=== PATIENT | female | born 1945 | race Caucasian/White ===

== ENCOUNTER 2018-08-06 14:09 | Inpatient (IN) | payer MEDICAID, OTHER ==
[~2018-08-06] VITALS: Ht 170.2 cm; Wt 140.8 kg
--- OUTSIDE RECORDS SUMMARY | 2018-08-06 14:16 | XMS REPORT ---
Author Author PAULINA COHEN Organization [facility] Address [address] [place] [address] Care Team Providers Care Guest Request Runner Name Role Phone PAULINA COHEN Unavailable PROBLEMS Type Condition ICD9-CM Code [id number] Code Onset Dates Condition Status SNOMED Code Problem Depressive disorder, not elsewhere classified F32.9 Active [id number] ALLERGIES No Information ENCOUNTERS Encounter Location Date Diagnosis [facility] [address] [facility] [id number] [address] Jul, Unspecified symptoms and signs involving cognitive functions and awareness R41.9 and Depressive disorder, not elsewhere classified F32.9 IMMUNIZATIONS No Known Immunizations SOCIAL HISTORY Never Assessed REASON FOR VISIT intake PLAN OF CARE VITAL SIGNS MEDICATIONS Medication Instructions Dosage Frequency Start Date End Date Duration Status Magnesium Oxide Active Ibuprofen Active Omeprazole Active Tylenol Active Calcium Carbonate Active Midodrine HCl Active Paroxetine HCl Active Potassium Active Ferrous Sulfate Active Phos-NaK Active Zocor Active RESULTS No Results PROCEDURES Procedure Date Ordered Result Body Site Psych diagnostic evaluation, new patient August 02, 2017 INSTRUCTIONS MEDICATIONS ADMINISTERED No Known Medications
--- OUTSIDE RECORDS SUMMARY | 2018-08-06 14:16 | XMS REPORT | Continuity of Care Document ---
Author Organization Unknown Address Unknown Allergies Active Description Code Type Severity Reaction Onset Reported/Identified Relationship to Patient Clinical Status Yes PENICILLINS UNKNOWN UNKNOWN Medications Medication Packaging Start Date Stop Date Route Dosage Sig ACETAMINOPHEN ORAL TABLET 325mg(Tylenol) MG 07/18/2018 08/17/2018 PRN EVERY 4 Hour POLYETHYLENE GLYCOL POWDER UD PWD (MIRALAX 17GM UNIT DOSE PAKS) gm 07/18/2018 08/17/2018 PRN Q3H LORAZEPAM TAB 1 MG (ATIVAN) MG 07/18/2018 07/25/2018 PRN Q6H MIDODRINE TAB 2.5 MG (PROAMATINE) MG 07/18/2018 08/17/2018 TID&0800,1400,2000 Valproic acid oral solution 250mg/5cc (Depakote) MG 07/18/2018 08/17/2018 TID&0800,1400,2000 SIMVASTATIN TAB 80 MG (ZOCOR) MG 07/18/2018 08/16/2018 QPM&2000 DIVALPROEX ER TAB 125 MG (DEPAKOTE ER) MG 07/18/2018 08/17/2018 BID&0800,2000 FERROUS SULFATE TAB 325 MG (FEOSOL) MG 07/18/2018 08/17/2018 BID&0800,2000 CALCIUM CARBONATE TAB 500 MG (TUMS) MG 07/18/2018 08/17/2018 BID&0800,2000 LACTULOSE SYRUP LIQ 20 GM/30CC (CHRONULAC SYRUP) GM 07/18/2018 08/17/2018 BID&0800,2000 MILK OF MAGNESIA LIQ ml 07/18/2018 08/17/2018 PRN BID TRAZODONE TAB 50 MG (DESYREL) MG 07/18/2018 08/16/2018 QHS&2100 POTASSIUM CHLORIDE TAB 20 MEQ (K-DUR) MEQ 07/19/2018 08/17/2018 QAM&0800 MAGNESIUM OXIDE TAB 400 MG (MAG-OX) MG 07/19/2018 08/17/2018 Daily&0900 PAROXETINE TAB 20 MG (PAXIL) MG 07/19/2018 08/17/2018 Daily&0900 VENLAFAXINE XR CAP 75 MG (EFFEXOR XR) MG 07/19/2018 08/17/2018 Daily&0900 SOLIFENACIN TAB 10 MG (VESICARE) MG 07/19/2018 08/17/2018 Daily&0900 PANTOPRAZOLE TAB 20 MG (PROTONIX) MG 07/19/2018 08/17/2018 Daily&0900 HALOPERIDOL TAB 5 MG (HALDOL) MG 07/19/2018 07/20/2018 Q6H&0600,1800,2359 FUROSEMIDE TAB 40 MG (LASIX) MG 07/22/2018 07/22/2018 ONCE&1349 ALBUTEROL SVN 2.5MG/3CC LIQ 2.5 MG (PROVENTIL MAROI 2.5MG/3CC) MG 07/22/2018 07/22/2018 ONCE&1350 ALBUTEROL SVN 2.5MG/3CC LIQ 2.5 MG (PROVENTIL MARIO 2.5MG/3CC) MG 07/22/2018 08/21/2018 BID&0800,2000 Problems Date Dx Coded Attending Type Code Diagnosis Diagnosed By 07/18/2018 NISREEN NIÑO 296.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 Results Test Result Range Urinalysis - 07/08/17 01:20 Icotest N/A Negative Urine Volume Urine Volume Sufficient (10mL) Urine Yeast No Yeast present Urine-Appearance slightly Cloudy Clear Urine-Bacteria 3+ Urine-Bilirubin Negative Negative Urine-Blood Negative Negative Urine-Color Yellow Colorless-Lt. Yellow Urine-Epithelial Cells 0-5/HPF Urine-Glucose Negative Negative Urine-Ketones Negative Negative Urine-Leukocytes 1+ Negative Urine-Nitrite Positive Negative Urine-Other Culture to follow Urine-pH 7.0 5-8.5 Urine-Protein Negative Negative Urine-RBC Negative Urine-Specific Jean 1.015 1.000-1.030 Urine-WBC 5-10/HPF Urobilinogen 0.2 0.2-1.0 Urine Culture - 07/08/17 01:20 MEDIA PLATED Setup at 14:37 on 07/08/2017 CULTURE SOURCE void Sensi - 07/08/17 01:20 FINAL CULTURE RESULTS Escherichia coli (Isolate 1) Ampicillin/Sulbactam >16/8 Ampicillin >16 Amoxicillin/K Clavulanate <=8/4 Ceftriaxone <=8 Ciprofloxacin >2 Nitrofurantoin <=32 Gentamicin <=4 Levofloxacin >4 Trimethoprim/ Sulfamethoxazole >2/38 Tetracycline >8 Amikacin <=16 Aztreonam <=8 Ceftazidime <=1 Ceftazidime/K Clavulanate <=0.25 Cephalothin >16 Cefotaxime <=2 Cefotaxime/K Clavulanate <=0.5 Cefoxitin <=8 Cefazolin <=8 Cefepime <=8 Cefuroxime 8 Ertapenem <=1 Imipenem <=4 Meropenem <=4 Piperacillin/Tazobactam <=16 Piperacillin >64 Tigecycline <=2 Tobramycin <=4 CULTURE, URINE - 05/07/18 08:54 CULTURE, URINE, ROUTINE SEE NOTE NRG CULTURE, URINE - 06/04/18 14:17 CULTURE, URINE, ROUTINE SEE NOTE NRG CULTURE, URINE - 06/13/18 14:53 CULTURE, URINE, ROUTINE SEE NOTE NRG Valproic Acid - 07/18/18 09:45 Valproic Acid 18.3 ug/mL 55.0-105.0 MRSA Screen - 07/18/18 09:45 FINAL CULTURE RESULTS MRSA Negative Nasal Culture Urine Culture - 07/18/18 12:29 PRELIM CULTURE RESULTS 50,000-100,000 Gram Positive Mixed Pamela [id number] Skin Contaminant MEDIA PLATED Setup at 13:02 on 07/18/2018 CULTURE SOURCE void Urinalysis - 07/18/18 12:29 Icotest N/A Negative Urine Volume Urine Volume Sufficient (10mL) Urine Yeast No Yeast present Urine-Appearance Cloudy Clear Urine-Bacteria Trace Urine-Bilirubin Negative Negative Urine-Blood Negative Negative Urine-Color Yellow Colorless-Lt. Yellow Urine-Epithelial Cells 0-5/HPF Urine-Glucose Negative Negative Urine-Ketones Negative Negative Urine-Leukocytes Negative Negative Urine-Nitrite Negative Negative Urine-Other Culture to follow Urine-pH 7.0 5-8.5 Urine-Protein Negative Negative Urine-RBC Negative Urine-Specific Jean 1.015 1.000-1.030 Urine-WBC Rare/HPF Urobilinogen 0.2 E.U./dL 0.2-1.0 Urine Culture - 07/18/18 12:29 PRELIM CULTURE RESULTS 50,000-100,000 Gram Positive Mixed Pamela [id number] Skin Contaminant FINAL CULTURE RESULTS >100,000 Gram Positive Mixed Pamela Probable Skin Contaminant No Further Workup done MEDIA PLATED Setup at 13:02 on 07/18/2018 CULTURE SOURCE void Lipid Panel - 07/19/18 05:47 C/HDL 3.1 3.7-6.7 Cholesterol 113 mg/dL 100-240 HDL 36 mg/dL 30-85 LDL-Calculated 50 mg/dL 0-100 Trig 137 mg/dL 35-160 VLDL 27 mg/dL 0-42 Valproic Acid - 07/21/18 05:20 Valproic Acid 62.9 ug/mL 55.0-105.0 Comprehensive Metabolic Panel - 07/23/18 05:39 Albumin 3.5 g/dL 3.6-5.1 ALP 108 U/L 35-130 ALT 17 U/L 6-45 Anion Gap 16 6-14 AST 17 U/L 2-40 BUN 19 mg/dL 5-25 Calcium 8.9 mg/dL 8.3-10.4 Chloride 98 mmol/L 95-114 CO2 30 mEq/L 22-33 Creat 0.82 mg/dL 0.50-1.50 eGFR 69 mL/min/1.73m2 >59 Globulin 2.8 g/dL 2.3-3.5 Glucose 83 mg/dL 70-110 Osmo 288 280-295 Potassium 4.6 mmol/L 3.5-5.3 Sodium 139 mmol/L 134-148 TBil 0.4 mg/dL 0.2-1.2 TP 6.3 g/dL 6.0-8.3 Encounters ACCT No. Visit Date/Time Discharge Status Pt. Type Provider Facility Loc./Unit Complaint [id number] 07/18/2018 09:56:00 07/23/2018 07:11:00 DIS Inpatient RENAY [facility] [id number] 07/08/2017 14:13:00 07/08/2017 23:59:00 DIS Outpatient Nathan Canela [id number] 07/18/2018 11:00:48 Document Registration [id number] 07/18/2018 11:16:00 Document Registration [id number] 08/05/2018 09:00:00 ACT Outpatient SUBHASH OCAMPO [facility] [id number] 06/13/2018 14:00:00 Document Registration [id number] 06/04/2018 14:00:00 Document Registration [id number] 05/07/2018 09:00:00 Document Registration
--- NOTE | 2018-08-06 14:28 | ED Respiratory ---
General Chief Complaint: Respiratory Problems Stated Complaint: BREATHING, SWOLLEN FEET Source: family Exam Limitations: no limitations History of Present Illness Date Seen by Provider: Aug 06, 2018 Time Seen by Provider: 14:25 Initial Comments To ER per private vehicle from [facility] and rehabilitation by family with reports of increasing weakness, wheezing, lower extremity redness and swelling worse usual. Patient has had some behavioral issues in the [place] [facility] and was recently sent to [facility]. Upon discharge from there family noted her to be progressively more weak to the point that she is unable to transfer without assistance or perform activities of daily living over the past 3 days. Prior to this she was able to do these things independently. While she was at [facility] she was started on Depakote. She does have a history of congestive heart failure, has been on Lasix for the past few days. Legs are more red and swollen than usual and has been on outpatient Keflex for cellulitis. She has also been wheezing and breathing more heavily than usual for the past 2 days. No reports of fevers per [place] [facility] staff Timing/Duration: constant Severity: moderate Associated Symptoms: cough, shortness of breath, wheezing Allergies and Home Medications Allergies Coded Allergies: Penicillins (Unverified Allergy, Mild, HIVES, 12/05/05) Tetanus Vaccines and Toxoid (Unverified Allergy, Mild, HIVES, 12/05/05) Home Medications Pantoprazole Sodium 20 Mg Tablet.dr, 20 MG PO DAILY, (Reported) Patient Home Medication List Home Medication List Reviewed: Yes Review of Systems Review of Systems Constitutional: see HPI; No fever; malaise, weakness EENTM: see HPI Respiratory: dyspnea on exertion Cardiovascular: no symptoms reported Genitourinary: no symptoms reported Musculoskeletal: no symptoms reported Skin: no symptoms reported Psychiatric/Neurological: No Symptoms Reported Hematologic/Lymphatic: No Symptoms Reported Immunological/Allergic: no symptoms reported Past Iestfjr-Mncqqb-Xrddra Hx Patient Social History Recent Foreign Travel: No Contact w/Someone Who Travel: No Physical Exam Vital Signs - First Documented 08/06/18 14:20 Temp 97.9 Pulse 93 Resp 29 B/P (MAP) 133/80 (97) Pulse Ox 92 O2 Delivery Room Air Capillary Refill : Height: '" Weight: lbs. oz. kg; BMI Method: General Appearance: WD/WN, mild distress (related to breathing status, she is dyspneic and wheezy audibly. Oxygen saturation 92% room air), obese Eyes: Bilateral Eye Normal Inspection, Bilateral Eye PERRL HEENT: PERRL/EOMI, normal ENT inspection Neck: non-tender, full range of motion Respiratory: no accessory muscle use, decreased breath sounds, wheezing Cardiovascular: regular rate, rhythm, no murmur Gastrointestinal: normal bowel sounds, non tender, soft Extremities: normal range of motion, non-tender, other (significant pitting edema bilateral lower extremity with erythema no open wounds) Neurologic/Psychiatric: alert Skin: normal color, warm/dry Focused Exam Lactate Level 08/06/18 14:36: Lactic Acid Level 1.01 Lactic Acid Level Laboratory Tests Test 08/06/18 14:36 Lactic Acid Level 1.01 MMOL/L (0.50-2.00) Progress/Results/Core Measures Suspected Sepsis SIRS Temperature: Pulse: Respiratory Rate: Laboratory Tests 08/06/18 14:36: White Blood Count 6.6 Blood Pressure / Mean: 08/06/18 14:36: Lactic Acid Level 1.01 Laboratory Tests 08/06/18 14:36: Creatinine 0.88, Platelet Count 180, Total Bilirubin 0.4 Results/Orders Lab Results Laboratory Tests Test 08/06/18 14:36 08/06/18 15:34 08/06/18 15:50 Range/Units White Blood Count 6.6 4.3-11.0 10^3/uL Red Blood Count 4.24 L 4.35-5.85 10^6/uL Hemoglobin 12.5 11.5-16.0 G/DL Hematocrit 39 35-52 % Mean Corpuscular Volume 93 80-99 FL Mean Corpuscular Hemoglobin 30 25-34 PG Mean Corpuscular Hemoglobin Concent 32 32-36 G/DL Red Cell Distribution Width 14.4 10.0-14.5 % Platelet Count 180 130-400 10^3/uL Mean Platelet Volume 10.3 7.4-10.4 FL Neutrophils (%) (Auto) 75 42-75 % Lymphocytes (%) (Auto) 9 L 12-44 % Monocytes (%) (Auto) 16 H 0-12 % Eosinophils (%) (Auto) 0 0-10 % Basophils (%) (Auto) 0 0-10 % Neutrophils # (Auto) 4.9 1.8-7.8 X 10^3 Lymphocytes # (Auto) 0.6 L 1.0-4.0 X 10^3 Monocytes # (Auto) 1.1 H 0.0-1.0 X 10^3 Eosinophils # (Auto) 0.0 0.0-0.3 10^3/uL Basophils # (Auto) 0.0 0.0-0.1 10^3/uL Sodium Level 137 135-145 MMOL/L Potassium Level 4.7 3.6-5.0 MMOL/L Chloride Level 100 98-107 MMOL/L Carbon Dioxide Level 25 21-32 MMOL/L Anion Gap 12 5-14 MMOL/L Blood Urea Nitrogen 16 7-18 MG/DL Creatinine 0.88 0.60-1.30 MG/DL Estimat Glomerular Filtration Rate > 60 BUN/Creatinine Ratio 18 Glucose Level 103 70-105 MG/DL Lactic Acid Level 1.01 0.50-2.00 MMOL/L Calcium Level 8.7 8.5-10.1 MG/DL Corrected Calcium 8.9 8.5-10.1 MG/DL Magnesium Level 2.3 1.8-2.4 MG/DL Total Bilirubin 0.4 0.1-1.0 MG/DL Aspartate Amino Transf (AST/SGOT) 19 5-34 U/L Alanine Aminotransferase (ALT/SGPT) 16 0-55 U/L Alkaline Phosphatase 91 40-136 U/L Troponin I < 0.028 <0.028 NG/ML B-Type Natriuretic Peptide 17.5 <100.0 PG/ML Total Protein 7.5 6.4-8.2 GM/DL Albumin 3.8 3.2-4.5 GM/DL Valproic Acid (Depakene) Level 88.7 50.0-100.0 UG/ML Urine Color YELLOW Urine Clarity CLEAR Urine pH 5 5-9 Urine Specific [place] 1.015 L 1.016-1.022 Urine Protein NEGATIVE NEGATIVE Urine Glucose (UA) NEGATIVE NEGATIVE Urine Ketones NEGATIVE NEGATIVE Urine Nitrite NEGATIVE NEGATIVE Urine Bilirubin NEGATIVE NEGATIVE Urine Urobilinogen NORMAL NORMAL MG/DL Urine Leukocyte Esterase NEGATIVE NEGATIVE Urine RBC (Auto) NEGATIVE NEGATIVE Urine RBC NONE /HPF Urine WBC NONE /HPF Urine Squamous Epithelial Cells RARE /HPF Urine Crystals NONE /LPF Urine Bacteria NEGATIVE /HPF Urine Casts PRESENT /LPF Urine Hyaline Casts RARE /LPF Urine Mucus SMALL H /LPF Urine Culture Indicated NO Blood Gas Puncture Site RT BRACHIAL Blood Gas Patient Temperature 97.8 Arterial Blood pH 7.41 7.37-7.43 Arterial Blood Partial Pressure CO2 46 H 35-45 MMHG Arterial Blood Partial Pressure O2 60 L 79-93 MMHG Arterial Blood HCO3 29 H 23-27 MMOL/L Arterial Blood Total CO2 30.3 21.0-31.0 MMOL/L Arterial Blood Oxygen Saturation 93 L 94-100 % Arterial Blood Base Excess 4.3 H -2.5-2.5 MMOL/L Hilton Test YES Blood Gas Ventilator Setting NO Blood Gas Inspired Oxygen ROOM AIR My Orders Orders - FLACO ROCHA HYPNOTHERAPIST Cbc With Automated Diff (08/06/18 14:22) Comprehensive Metabolic Panel (08/06/18 14:22) Ua Culture If Indicated (08/06/18 14:22) BNP (08/06/18 14:22) Chest 1 View, Ap/Pa Only (08/06/18 14:22) Troponin I (08/06/18 14:22) Ekg Tracing (08/06/18 14:22) Magnesium (08/06/18 14:22) Valproic Acid (08/06/18 14:22) Ed Iv/Invasive Line Start (08/06/18 14:22) Blood Culture (08/06/18 14:22) Lactic Acid Analyzer (08/06/18 14:22) Albuterol/Ipra Inhalation Soln (Duoneb I (08/06/18 14:30) Svn Small Volume Nebulizer (08/06/18 14:28) Arterial Blood Gas (08/06/18 15:50) Arterial Blood Draw (08/06/18 ) Ct Head Wo (08/06/18 16:24) Iohexol Injection (Omnipaque 350 Mg/Ml 1 (08/06/18 17:30) Received Contrast (Hold Metformin- Contr (08/06/18 17:30) Ns (Ivpb) (Sodium Chloride 0.9% Ivpb Bag (08/06/18 17:30) Us Venous Lower Ext Amrit (08/06/18 17:51) Medications Given in ED Current Medications Medications Dose Ordered Sig/Omayra Route Start Time Stop Time Status Last Admin Dose Admin Albuterol/ Ipratropium 3 ml ONCE ONCE INH 08/06/18 14:30 08/06/18 14:31 DC 08/06/18 14:33 3 ML Vital Signs/I&O 08/06/18 08/06/18 14:20 14:33 Temp 97.9 Pulse 93 Resp 29 B/P (MAP) 133/80 (97) Pulse Ox 92 93 O2 Delivery Room Air Room Air Capillary Refill : Diagnostic Imaging Diagonstic Imaging: Xray Plain Films/CT/US/NM/MRI: chest Comments NAME: ANATOLIY SILVERMAN MED REC#: [id number] PT STATUS: REG ER : 1945 PHYSICIAN: FLACO ROCHA APRN ADMIT DATE: 08/06/18/ER Draft Date of Exam:08/06/18 CHEST 1 VIEW, AP/PA ONLY INDICATION: Increasing shortness of air and weakness. TIME OF EXAM: 02:44 p.m. COMPARISON: No prior studies are available for comparison. FINDINGS: The heart is enlarged. Density in the right cardiophrenic angle is noted and could represent infiltrate versus cardiophrenic fat. Remainder of the lung field is clear. Vascularity is normal. No significant effusion or pneumothorax is seen. IMPRESSION: Cardiomegaly and right cardiophrenic angle density, as described above. The study is otherwise unremarkable. Dictated on workstation # [id number] Dict: 08/06/18 1455 Trans: 08/06/18 1459 [id number] Interpreted by: DARLENE THAKKAR MD Electronically signed by: Departure Communication (Admissions) Time/Spoke to Admitting Phy: 17:51 1750-patient taken to the CT scan department but Called to report that she will not lay still, states that she wants up and refuses to proceed with the CT angiogram. 1821-I will order ultrasound venous lower is given the erythema and to help reduce the likelihood of coronary emboli if these are negative. In the meantime we will treat this question right lower lobe pneumonia with Zithromax and Ro cephin. Family would be most comfortable with admitting observation to hold the Depakote and ensure that her neurologic status improves as it is believed based on absence of other findings that the Depakote contributing to this and ability to care for herself over the past few days. This is a fairly soft abdomen, her respiratory effort is a bit increased however it may be simply from her obesity. Respiratory rate about 24 and 92% on room air. Impression Primary Impression: General weakness Additional Impression: Right lower lobe pneumonia Qualified Codes: J18.1 - Lobar pneumonia, unspecified organism Disposition: ADMITTED INPATIENT Condition: Stable Admissions Decision to Admit Reason: Admit from ER (General) Decision to Admit/Date: Aug 06, 2018 Time/Decision to Admit Time: 15:37 Departure-Patient Inst. Referrals: SIMONE ROMAN MD (PCP) Primary Care Physician FLACO ROCHA APRN Aug 06, 2018 14:28
[2018-08-06] MEDS ORDERED: RT-ALBUTEROL/IPRATROPIUM 3 ML (DUONEB) VIAL INH ONE (14:30)
[2018-08-06 14:45] LABS: BASOPHILS % (AUTO) 0 % (0-10); EOSINOPHILS % (AUTO) 0 % (0-10); HEMATOCRIT 39 % (35-52); HEMOGLOBIN 12.5 G/DL (11.5-16.0); LYMPHOCYTES # (AUTO) 0.6 X 10^3 (1.0-4.0); LYMPHOCYTES % (AUTO) 9 % (12-44); MEAN CORPUSCULAR HEMOGLOBIN 30 PG (25-34); MEAN CORPUSCULAR HGB CONC 32 G/DL (32-36); MEAN CORPUSCULAR VOLUME 93 FL (80-99); MEAN PLATELET VOLUME 10.3 FL (7.4-10.4); MONOCYTES # (AUTO) 1.1 X 10^3 (0.0-1.0); MONOCYTES % (AUTO) 16 % (0-12); NEUTROPHILS # (AUTO) 4.9 X 10^3 (1.8-7.8); NEUTROPHILS % (AUTO) 75 % (42-75); PLATELET COUNT 180 10^3/uL (130-400); RED CELL DISTRIBUTION WIDTH 14.4 % (10.0-14.5); WHITE BLOOD COUNT 6.6 10^3/uL (4.3-11.0)
--- NOTE | 2018-08-06 15:00 | Diagnostic Imaging Report ---
INDICATION: Increasing shortness of air and weakness. TIME OF EXAM: 02:44 p.m. COMPARISON: No prior studies are available for comparison. FINDINGS: The heart is enlarged. Density in the right cardiophrenic angle is noted and could represent infiltrate versus cardiophrenic fat. Remainder of the lung field is clear. Vascularity is normal. No significant effusion or pneumothorax is seen. IMPRESSION: Cardiomegaly and right cardiophrenic angle density, as described above. The study is otherwise unremarkable. Dictated by: Dictated on workstation # [id number]
[2018-08-06 15:07] LABS: ALANINE AMINOTRANSFERASE 16 U/L (0-55); ALBUMIN 3.8 GM/DL (3.2-4.5); ALKALINE PHOSPHATASE 91 U/L (40-136); BILIRUBIN,TOTAL 0.4 MG/DL (0.1-1.0); BUN/CREATININE RATIO 18; CALCIUM 8.7 MG/DL (8.5-10.1); CARBON DIOXIDE 25 MMOL/L (21-32); CHLORIDE 100 MMOL/L (98-107); CREATININE SERUM 0.88 MG/DL (0.60-1.30); GFR ESTIMATED > 60; GLUCOSE 103 MG/DL (70-105); MAGNESIUM 2.3 MG/DL (1.8-2.4); POTASSIUM 4.7 MMOL/L (3.6-5.0); SODIUM 137 MMOL/L (135-145); TOTAL PROTEIN 7.5 GM/DL (6.4-8.2)
[2018-08-06 15:14] LABS: VALPROIC ACID 88.7 UG/ML (50.0-100.0)
[2018-08-06 15:40] LABS: BILIRUBIN,URINE NEGATIVE (NEGATIVE); CLARITY,URINE CLEAR; COLOR,URINE YELLOW; GLUCOSE, URINE (UA) NEGATIVE (NEGATIVE); KETONES,URINE NEGATIVE (NEGATIVE); LEUKOCYTE ESTERASE ,URINE NEGATIVE (NEGATIVE); NITRITE,URINE NEGATIVE (NEGATIVE); PH,URINE 5 (5-9); PROTEIN,URINE NEGATIVE (NEGATIVE); UROBILINOGEN,URINE NORMAL (NORMAL)
[2018-08-06 15:48] LABS: BACTERIA,URINE NEGATIVE /HPF; HYALINE CASTS, URINE RARE /LPF; SQUAMOUS EPITHELIAL CELL,UR RARE /HPF
[2018-08-06 15:57] LABS: ABG BASE EXCESS 4.3 MMOL/L (-2.5-2.5); ABG OXYGEN SATURATION 93 % (94-100); ABG PCO2 46 MMHG (35-45); ABG PH 7.41 (7.37-7.43); ABG PO2 60 MMHG (79-93); ABG TCO2 30.3 MMOL/L (21.0-31.0)
[2018-08-06 16:05] LABS: ALLENS TEST YES; INSPIRED O2 ROOM AIR; PATIENT TEMP 97.8; VENTILATOR NO
--- NOTE | 2018-08-06 16:18 | NUR ---
readjusted pt in bed, put pt in gown. pt is more awake et alert than previously
[2018-08-06] MEDS ORDERED: ASCO1CAP3 PO (17:16)
[2018-08-06] MEDS ORDERED: CNC1KV IM (17:19)
[2018-08-06] MEDS ORDERED: FERR325T18 PO (17:20)
[2018-08-06] MEDS ORDERED: CEPH-507 PO (17:21)
[2018-08-06] MEDS ORDERED: FURO-125 PO (17:22)
[2018-08-06] MEDS ORDERED: LACT20SO2 PO (17:22)
[2018-08-06] MEDS ORDERED: MAGN400T7 PO (17:24)
[2018-08-06] MEDS ORDERED: HOLD METFORMIN - RECEIVED CONTRAST 20 ML VIAL IV SCH (17:30)
[2018-08-06] MEDS ORDERED: NS 100 ML (IVPB) BAG IV ONE (17:30)
[2018-08-06] MEDS ORDERED: IOHEXOL 350 MG/ML 150 ML (OMNIPAQUE 350) VIAL IV ONE (17:30)
[2018-08-06] MEDS ORDERED: MIDO10TA PO (17:32)
[2018-08-06] MEDS ORDERED: OMEP20TA7 PO (17:33)
[2018-08-06] MEDS ORDERED: POTA20TA15 PO (17:34)
[2018-08-06] MEDS ORDERED: PANT20TA2 PO (17:35)
[2018-08-06] MEDS ORDERED: SIMV80TA21 PO (17:36)
[2018-08-06] MEDS ORDERED: TRAZ-222 PO (17:37)
[2018-08-06] MEDS ORDERED: VALP250S3 PO (17:37)
[2018-08-06] MEDS ORDERED: SOLI10TA2 PO (17:38)
--- NOTE | 2018-08-06 17:59 | NUR ---
pt refused CT because she was scared. Provider notified
--- NOTE | 2018-08-06 18:05 | Diagnostic Imaging Report ---
PROCEDURE: CT head without contrast. TECHNIQUE: Multiple contiguous axial images were obtained through the brain without the use of intravenous contrast. Auto Exposure Controls were utilized during the CT exam to meet ALARA standards for radiation dose reduction. INDICATION: Increasing weakness and shortness of air. COMPARISON: No prior studies are available for comparison. FINDINGS: Study is compromised due to patient's motion. Visualized ventricles and sulci appear to be within normal limits. No sulcal effacement, midline shift or hemorrhage is detected. Cisterns are patent. Visualized paranasal sinuses are clear. IMPRESSION: Limited by motion artifact. No acute abnormality is detected. Dictated by: Dictated on workstation # [id number]
--- NOTE | 2018-08-06 18:15 | NUR ---
pt is restless et saying her lower back et legs hurt. Provider notified
[2018-08-06] MEDS ORDERED: fentaNYL INJECTION 100 MCG/2 ML AMP IVP PRN (18:30)
[2018-08-06] MEDS ORDERED: KETOROLAC 30 MG/ML VIAL IVP ONE (18:30)
--- OUTSIDE RECORDS SUMMARY | 2018-08-06 18:31 | XMS REPORT | Continuity of Care Document ---
[...] 2.5 MG (PROVENTIL MARIO 2.5MG/3CC) MG 07/22/2018 07/22/2018 ONCE&1350 ALBUTEROL SVN [...] 5-8.5 Urine-Protein Negative Negative Urine-RBC Negative Urine-Specific [place] 1.015 1.000-1.030 Urine-WBC 5-10/HPF Urobilinogen 0.2 0.2-1.0 [...] CULTURE RESULTS 50,000-100,000 Gram Positive Mixed Pamela [id number] Skin Contaminant MEDIA PLATED Setup at 13:02 [...] 5-8.5 Urine-Protein Negative Negative Urine-RBC Negative Urine-Specific [place] 1.015 1.000-1.030 Urine-WBC Rare/HPF Urobilinogen 0.2 E.U./dL 0.2-1.0 Urine Culture - 07/18/18 12:29 PRELIM CULTURE RESULTS 50,000-100,000 Gram Positive Mixed Pamela [id number] Skin Contaminant FINAL CULTURE RESULTS >100,000 Gram [...] Status Pt. Type Provider Facility Loc./Unit Complaint [id number] 07/18/2018 09:56:00 07/23/2018 07:11:00 DIS Inpatient RENAY [facility] [id number] 07/08/2017 14:13:00 07/08/2017 23:59:00 DIS Outpatient Nathan Canela [id number] 07/18/2018 11:00:48 Document Registration [id number] 07/18/2018 11:16:00 Document Registration [id number] 08/05/2018 09:00:00 ACT Outpatient SUBHASH OCAMPO [facility] [id number] 06/13/2018 14:00:00 Document Registration [id number] 06/04/2018 14:00:00 Document Registration [id number] 05/07/2018 09:00:00 Document Registration
--- NOTE | 2018-08-06 18:40 | NUR ---
REPORT RECEIVED FROM DEMOND JETER IN ED
--- NOTE | 2018-08-06 18:42 | NUR ---
pt report given to Lizeth LAGOS
--- NOTE | 2018-08-06 18:43 | NUR ---
report given to [facility]
--- NOTE | 2018-08-06 18:44 | Diagnostic Imaging Report ---
PROCEDURE: US Venous Lower Ext Amrit. TECHNIQUE: Multiple real-time grayscale images were obtained over the lower extremities in various projections, bilaterally. Additional duplex Doppler and color Doppler images were also obtained. INDICATION: Bilateral lower extremity swelling. FINDINGS: Study is somewhat compromised due to patient body habitus. The common femoral as well as the upper and middle superficial femoral veins are patent. The lower femoral veins as well as the popliteal veins were not well visualized. No fluid collections are seen. IMPRESSION: Limited study due to body habitus. No definite right or left lower extremity DVT is identified. Dictated by: Dictated on workstation # [id number]
[2018-08-06 18:50] VITALS: BP 100/60
--- NOTE | 2018-08-06 18:52 | NUR ---
PT ARRIVED TO FLOOR VIA STRETCHER WITH DAUGHTERS AND PCT AT SIDE. A/O X3. REDNESS/ EDEMA NOTED TO BILAT LOWER EXTREM, BUTTOCKS RED/BLANCHABLE WITH BM PRESENT. BUTTOCKS CLEANSED AND PROTECTIVE CREAM APPLIED. PT AND DAUGHTER ORIENTED TO ROOM. CALL LIGHT WITHIN REACH. BED ALARM ON.
[2018-08-06 19:05] VITALS: BP 100/67
[2018-08-06] MEDS ORDERED: AZITHROMYCIN 250 MG TAB (ZITHROMAX) PO NR (19:30)
[2018-08-06] MEDS ORDERED: CATHETER FLUSH 10 ML SYR IV PRN (19:45)
[2018-08-06] MEDS: RT-ALBUTEROL/IPRATROPIUM 3 ML (DUONEB) VIAL INH SCH (19:53)
[2018-08-06] MEDS: guaiFENesin (MUCINEX) 600 MG TAB PO SCH (20:28)
[2018-08-06] MEDS: ENOXAPARIN 40 MG/0.4 ML (LOVENOX) SYR SC SCH (20:29)
[2018-08-06] MEDS: cefTRIAXone 1,000 MG/SWFI 10 ML IV PUSH IV SCH ×2 (20:38)
[2018-08-06 20:59] VITALS: BP 108/75
[2018-08-06] MEDS: CATHETER FLUSH 10 ML SYR IV SCH (22:00)
[2018-08-06 23:35] VITALS: BP 148/95
[2018-08-07] MEDS: RT-ALBUTEROL/IPRATROPIUM 3 ML (DUONEB) VIAL INH SCH ×8 (02:54→22:50)
[2018-08-07 03:00] VITALS: BP 117/58
--- NOTE | 2018-08-07 03:00 | NUR ---
contacted dr Lauren regarding patient agitation. Give Ativan 1mg ivp x1 now. TORBV
[2018-08-07] MEDS ORDERED: LORazepam INJ 2 MG/ML (ATIVAN) VIAL ONE (03:03)
[2018-08-07] MEDS ORDERED: LORazepam INJ 2 MG/ML (ATIVAN) VIAL IVP ONE (03:15)
[2018-08-07] MEDS: CATHETER FLUSH 10 ML SYR IV SCH ×3 (06:37→21:28)
--- NOTE | 2018-08-07 07:49 | NUR ---
PATIENT'S DAUGHTER CALLED. SET UP A PASSWORD. SHE IS CONCERNED ABOUT THE DEPAKOTE HER MOTHER HAS BEEN TAKING FOR A FEW WEEKS. SHE STATED THAT FLACO FROM ED WAS GOING TO REDUCE THE DOSE. SHE WANTS TO BE SURE THE DOCTOR IS AWARE ABOUT HER CONCERNS REGARDING THE DEPAKOTE. SHE STATED THAT ALL HER MOTHER'S PROBLEMS STARTED WHEN SHE STARTED TO TAKE IT.
[2018-08-07 08:23] VITALS: BP 114/77
[2018-08-07] MEDS: ENOXAPARIN 40 MG/0.4 ML (LOVENOX) SYR SC SCH ×2 (08:47→21:27)
[2018-08-07] MEDS: AZITHROMYCIN 250 MG TAB (ZITHROMAX) PO SCH (08:47)
[2018-08-07] MEDS: guaiFENesin (MUCINEX) 600 MG TAB PO SCH ×2 (08:47→21:27)
--- NOTE | 2018-08-07 10:28 | History & Physicial (CHS) ---
HPI History of Present Illness: 73 yo female states she came to ER because she was in pain. She is unable to give much more history, mumbling and having increased work of breathing. Source: patient Exam Limitations: clinical condition Date seen by provider: Aug 07, 2018 Time Seen by Provider: 10:28 Attending Physician Mindi Lauren MD PCP Jonathan Kingsley MD Consult Date of Admission Aug 06, 2018 at 18:20 Home Medications Home Medications Reviewed patient Home Medication Reconciliation performed by pharmacy medication reconciliations fill technician and/or nursing. Patients Allergies have been reviewed. Allergies Coded Allergies: Penicillins (Unverified Allergy, Mild, HIVES, 12/05/05) Tetanus Vaccines and Toxoid (Unverified Allergy, Mild, HIVES, 12/05/05) DSR-Kispet-Ljkyqr Hx Patient Social History Alcohol Use: Denies Use Recreational Drug Use: No Recent Foreign Travel: No Contact w/other who traveled: No Recent Hopitalizations: Yes Recent Infectious Disease Expo: No Past Medical History PMHx: Unable to obtain due to patient condition Review of Systems (CHC) Constitutional: other (unable to obtain due to patient condition) Reviewed Test Results Reviewed Test Results Lab Laboratory Tests Test 08/06/18 14:36 08/06/18 15:34 08/06/18 15:50 08/07/18 11:20 Range/Units White Blood Count 6.6 5.4 4.3-11.0 10^3/uL Red Blood Count 4.24 L 3.94 L 4.35-5.85 10^6/uL Hemoglobin 12.5 12.0 11.5-16.0 G/DL Hematocrit 39 38 35-52 % Mean Corpuscular Volume 93 95 80-99 FL Mean Corpuscular Hemoglobin 30 30 25-34 PG Mean Corpuscular Hemoglobin Concent 32 32 32-36 G/DL Red Cell Distribution Width 14.4 14.7 H 10.0-14.5 % Platelet Count 180 153 130-400 10^3/uL Mean Platelet Volume 10.3 10.0 7.4-10.4 FL Neutrophils (%) (Auto) 75 42-75 % Lymphocytes (%) (Auto) 9 L 12-44 % Monocytes (%) (Auto) 16 H 0-12 % Eosinophils (%) (Auto) 0 0-10 % Basophils (%) (Auto) 0 0-10 % Neutrophils # (Auto) 4.9 1.8-7.8 X 10^3 Lymphocytes # (Auto) 0.6 L 1.0-4.0 X 10^3 Monocytes # (Auto) 1.1 H 0.0-1.0 X 10^3 Eosinophils # (Auto) 0.0 0.0-0.3 10^3/uL Basophils # (Auto) 0.0 0.0-0.1 10^3/uL Sodium Level 137 137 135-145 MMOL/L Potassium Level 4.7 4.7 3.6-5.0 MMOL/L Chloride Level 100 101 98-107 MMOL/L Carbon Dioxide Level 25 28 21-32 MMOL/L Anion Gap 12 8 5-14 MMOL/L Blood Urea Nitrogen 16 14 7-18 MG/DL Creatinine 0.88 0.81 0.60-1.30 MG/DL Estimat Glomerular Filtration Rate > 60 > 60 BUN/Creatinine Ratio 18 17 Glucose Level 103 106 H 70-105 MG/DL Lactic Acid Level 1.01 0.50-2.00 MMOL/L Calcium Level 8.7 8.2 L 8.5-10.1 MG/DL Corrected Calcium 8.9 8.8 8.5-10.1 MG/DL Magnesium Level 2.3 1.8-2.4 MG/DL Total Bilirubin 0.4 0.4 0.1-1.0 MG/DL Aspartate Amino Transf (AST/SGOT) 19 17 5-34 U/L Alanine Aminotransferase (ALT/SGPT) 16 13 0-55 U/L Alkaline Phosphatase 91 89 40-136 U/L Troponin I < 0.028 <0.028 NG/ML B-Type Natriuretic Peptide 17.5 <100.0 PG/ML Total Protein 7.5 6.4 6.4-8.2 GM/DL Albumin 3.8 3.3 3.2-4.5 GM/DL Valproic Acid (Depakene) Level 88.7 50.0-100.0 UG/ML Urine Color YELLOW Urine Clarity CLEAR Urine pH 5 5-9 Urine Specific [place] 1.015 L 1.016-1.022 Urine Protein NEGATIVE NEGATIVE Urine Glucose (UA) NEGATIVE NEGATIVE Urine Ketones NEGATIVE NEGATIVE Urine Nitrite NEGATIVE NEGATIVE Urine Bilirubin NEGATIVE NEGATIVE Urine Urobilinogen NORMAL NORMAL MG/DL Urine Leukocyte Esterase NEGATIVE NEGATIVE Urine RBC (Auto) NEGATIVE NEGATIVE Urine RBC NONE /HPF Urine WBC NONE /HPF Urine Squamous Epithelial Cells RARE /HPF Urine Crystals NONE /LPF Urine Bacteria NEGATIVE /HPF Urine Casts PRESENT /LPF Urine Hyaline Casts RARE /LPF Urine Mucus SMALL H /LPF Urine Culture Indicated NO Blood Gas Puncture Site RT BRACHIAL Blood Gas Patient Temperature 97.8 Arterial Blood pH 7.41 7.37-7.43 Arterial Blood Partial Pressure CO2 46 H 35-45 MMHG Arterial Blood Partial Pressure O2 60 L 79-93 MMHG Arterial Blood HCO3 29 H 23-27 MMOL/L Arterial Blood Total CO2 30.3 21.0-31.0 MMOL/L Arterial Blood Oxygen Saturation 93 L 94-100 % Arterial Blood Base Excess 4.3 H -2.5-2.5 MMOL/L Hilton Test YES Blood Gas Ventilator Setting NO Blood Gas Inspired Oxygen ROOM AIR Test 08/07/18 12:10 Range/Units Blood Gas Puncture Site VENOUS L FOREARM Blood Gas Patient Temperature 97.6 Arterial Blood pH 7.37 7.37-7.43 Arterial Blood Partial Pressure CO2 52 H 35-45 MMHG Arterial Blood Partial Pressure O2 41 L 79-93 MMHG Arterial Blood HCO3 30 H 23-27 MMOL/L Arterial Blood Total CO2 31.6 H 21.0-31.0 MMOL/L Arterial Blood Oxygen Saturation 78 L 94-100 % Arterial Blood Base Excess 4.9 H -2.5-2.5 MMOL/L Hilton Test N/A Blood Gas Ventilator Setting NO Blood Gas Inspired Oxygen UNK Radiology Head CT 08/06 without acute abnormality Bilateral LE venous dopplers 08/06 with no DVT CXR 08/06 with right cardiophrenic angle density Physical Exam-(CHC) Physical Exam Vital Signs VS - Last 72 Hours, by Label 08/06/18 08/06/18 08/06/18 08/06/18 14:20 14:33 18:08 18:50 Temp 97.9 98.1 98.5 Pulse 93 84 93 Resp 29 18 16 B/P (MAP) 133/80 (97) 152/78 (102) 100/60 (73) Pulse Ox 92 93 100 92 O2 Delivery Room Air Room Air Room Air Nasal Cannula O2 Flow Rate 2.00 08/06/18 08/06/18 08/06/18 08/06/18 19:05 20:00 20:06 20:24 Temp 98.5 Pulse 93 95 Resp 16 B/P (MAP) 100/67 Pulse Ox 92 95 92 O2 Delivery Room Air Nasal Cannula Nasal Cannula O2 Flow Rate 2.00 2.00 08/06/18 08/06/18 08/06/18 08/07/18 20:59 22:00 23:35 01:00 Temp 97.4 98.4 Pulse 84 98 98 Resp 18 18 B/P (MAP) 108/75 (86) 148/95 (112) Pulse Ox 95 95 92 O2 Delivery Nasal Cannula Nasal Cannula Nasal Cannula O2 Flow Rate 2.00 2.00 2.00 08/07/18 08/07/18 08/07/18 08/07/18 02:57 03:00 07:05 07:05 Temp 98.9 Pulse 110 102 Resp 22 B/P (MAP) 117/58 (77) Pulse Ox 92 94 87 O2 Delivery Nasal Cannula Nasal Cannula Nasal Cannula O2 Flow Rate 2.00 2.00 2.00 2.00 08/07/18 08/07/18 08/07/18 08/07/18 08:00 08:23 12:00 12:10 Temp 96.9 97.6 Pulse 108 101 100 Resp 26 24 27 B/P (MAP) 114/77 (89) 131/61 (84) Pulse Ox 95 95 97 92 O2 Delivery Nasal Cannula Nasal Cannula NIV Bilevel O2 Flow Rate 3.00 3.00 21.00 08/07/18 08/07/18 12:20 12:36 Pulse 102 99 Resp 24 Pulse Ox 91 O2 Flow Rate 21.00 Capillary Refill : Less Than 3 Seconds General Appearance: moderate distress, obese Eyes: Bilateral Eye PERRL Respiratory: accessory muscle use, wheezing Cardiovascular: regular rate, rhythm, no murmur Gastrointestinal: normal bowel sounds, non tender, soft Extremities: pedal edema, other (mild calf redness bilaterally) Neurologic/Psychiatric: alert, other (unable to cooperate well/follow instructions for cranial nerve exams, 4/5 strength bilaterally in arms and legs, speech is difficult to understand and frequently off subject of question that was asked) Skin: warm/dry Assessment/Plan Assessment/Plan Admission Status: Observation (1) Confusion Status: Acute Assessment & Plan: Unknown baseline, no family present, but was reportedly in senior behavioral health recently and started on depakote. Holding depakote, pt remains difficult to understand and somewhat lethargic, will check ABG given increased work of breathing. Head CT okay on admit. (2) General weakness Status: Acute Assessment & Plan: Unclear etiology, possibly infection related, when more alert will have PT/OT eval. (3) Right lower lobe pneumonia Status: Acute Assessment & Plan: Started on rocephin and azithromycin in ER, will continue. Qualifiers: Qualified Codes: J18.1 - Lobar pneumonia, unspecified organism (4) Hypoxia Status: Acute Assessment & Plan: She denies using oxygen usually, has markedly increased work of breathing and is not leaving supplemental oxygen in place well. Repeat ABG and consult Dr. Macias. (5) UTI (urinary tract infection) Status: Acute Assessment & Plan: Previous to admission was being treated with Keflex, will be covered with ceftriaxone for pneumonia. Qualifiers: Qualified Codes: N39.0 - Urinary tract infection, site not specified (6) DVT prophylaxis Status: Acute Assessment & Plan: Enoxaparin Clinical Quality Measures DVT/VTE Risk/Contraindication: Risk Factor Score Per Nursin RFS Level Per Nursing on Admit: 4+=Very High MINDI LAUREN MD Aug 07, 2018 10:28
--- NOTE | 2018-08-07 10:47 | NUR ---
CALLED R.T REGARDING ABG ORDER
[2018-08-07] MEDS ORDERED: ACET325T49 PO (11:04)
[2018-08-07] MEDS ORDERED: POLY15DR14 OU (11:04)
[2018-08-07] MEDS ORDERED: CALC-938 PO (11:04)
[2018-08-07 11:31] LABS: RED CELL DISTRIBUTION WIDTH 14.7 % (10.0-14.5); WHITE BLOOD COUNT 5.4 10^3/uL (4.3-11.0)
--- NOTE | 2018-08-07 11:43 | NUR ---
Goran.Jory UNABLE TO OBTAIN ABG. Paco NOTIFIED DR BELTRAN
[2018-08-07] MEDS ORDERED: CRAN450C PO (11:44)
[2018-08-07 11:53] LABS: ALANINE AMINOTRANSFERASE 13 U/L (0-55); ALBUMIN 3.3 GM/DL (3.2-4.5); ALKALINE PHOSPHATASE 89 U/L (40-136); BILIRUBIN,TOTAL 0.4 MG/DL (0.1-1.0); BUN/CREATININE RATIO 17; CALCIUM 8.2 MG/DL (8.5-10.1); CARBON DIOXIDE 28 MMOL/L (21-32); CHLORIDE 101 MMOL/L (98-107); CREATININE SERUM 0.81 MG/DL (0.60-1.30); GFR ESTIMATED > 60; GLUCOSE 106 MG/DL (70-105); POTASSIUM 4.7 MMOL/L (3.6-5.0); SODIUM 137 MMOL/L (135-145); TOTAL PROTEIN 6.4 GM/DL (6.4-8.2)
[2018-08-07 12:00] VITALS: BP 131/61
[2018-08-07] MEDS ORDERED: methylPREDNISolone 125 MG (Solu-MEDROL) VIAL IV ONE (12:00)
--- NOTE | 2018-08-07 12:00 | Pulmonary Consultation ---
History of Present Illness History of Present Illness Date of Consultation 08/07/18 12:00 Date of Admission Allergies and Home Medications Allergies Coded Allergies: Penicillins (Unverified Allergy, Mild, HIVES, 12/05/05) Tetanus Vaccines and Toxoid (Unverified Allergy, Mild, HIVES, 12/05/05) Home Medications Acetaminophen 325 Mg Tablet, 325 MG PO Q4H PRN for PAIN-MILD, (Reported) Calcium Carbonate 300 Mg Tab.chew, 750 MG PO BID PRN for HEARTBURN, (Reported) Cephalexin 500 Mg Capsule, 500 MG PO TID, (Reported) Cranberry Fruit Concentrate 450 Mg Capsule, 450 MG PO BID, (Reported) Cyanocobalamin 1,000 Mcg/Ml Inj, 1,000 MCG IM monthly on the , (Reported) Ferrous Sulfate 325 Mg Tablet, 325 MG PO BID, (Reported) Lactulose 20 Gm/30 Ml Solution, 30 ML PO BID PRN for CONSTIPATION-3RD LINE, (Reported) Magnesium Oxide 400 Mg Tablet, 400 MG PO DAILY, (Reported) Midodrine HCl 10 Mg Tablet, 10 MG PO TID, (Reported) Omeprazole 20 Mg Tablet.dr, 20 MG PO DAILY, (Reported) Pantoprazole Sodium 20 Mg Tablet.dr, 20 MG PO DAILY, (Reported) Polyvinyl Alcohol/Povidone 15 Ml Drops, 2 DROP OU Q2H PRN for dry or itching eyes, (Reported) Potassium Chloride 20 Meq Tab.er.prt, 40 MEQ PO DAILY, (Reported) Simvastatin 80 Mg Tablet, 80 MG PO HS, (Reported) Solifenacin Succinate 10 Mg Tablet, 10 MG PO DAILY, (Reported) Trazodone HCl 50 Mg Tablet, 50 MG PO DAILY, (Reported) Valproic Acid (As Sodium Salt) 250 Mg/5 Ml Solution, 10 ML PO TID, (Reported) Past Halsvqb-Rrwdjn-Qqvnfe Hx Patient Social History Alcohol Use: Denies Use Recreational Drug Use: No Recent Foreign Travel: No Contact w/Someone Who Travel: No Recent Infectious Disease Expo: No Recent Hopitalizations: Yes Past Medical History Respiratory: Yes Cardiac: Yes (CHF) Hypertension Neurological: No Genitourinary: Yes (urinary incontinence) UTI-Chronic Gastrointestinal: No Depression Sepsis Event Evaluation Height, Weight, BMI Height: 5'7.00" Weight: 310lbs. 7.0oz. 140.530282wy; 48.6 BMI Method:Stated Exam Exam Vital Signs Date Time Temp Pulse Resp B/P (MAP) Pulse Ox O2 Delivery O2 Flow Rate FiO2 08/07/18 08:23 96.9 108 26 114/77 (89) 95 Nasal Cannula 3.00 08/07/18 08:00 95 Nasal Cannula 3.00 08/07/18 07:05 87 Nasal Cannula 2.00 08/07/18 07:05 102 08/07/18 03:00 98.9 110 22 117/58 (77) 94 Nasal Cannula 2.00 2.00 08/07/18 02:57 92 Nasal Cannula 2.00 08/07/18 01:00 98 08/06/18 23:35 98.4 98 18 148/95 (112) 92 Nasal Cannula 2.00 08/06/18 22:00 95 Nasal Cannula 2.00 08/06/18 20:59 97.4 84 18 108/75 (86) 95 Nasal Cannula 2.00 08/06/18 20:24 95 08/06/18 20:06 92 Nasal Cannula 2.00 08/06/18 20:00 95 Nasal Cannula 2.00 08/06/18 19:05 98.5 93 16 100/67 92 Room Air 08/06/18 18:50 98.5 93 16 100/60 (73) 92 Nasal Cannula 2.00 08/06/18 18:08 98.1 84 18 152/78 (102) 100 Room Air 08/06/18 14:33 93 Room Air 08/06/18 14:20 97.9 93 29 133/80 (97) 92 Room Air I & O 08/07/18 07:00 Intake Total 440 ml Balance 440 ml Height & Weight Height: 5'7.00" Weight: 310lbs. 7.0oz. 140.029874uu; 48.6 BMI Method:Stated Capillary Refill: Less Than 3 Seconds Gastrointestinal: normal bowel sounds, non tender, soft Results Lab Laboratory Tests 08/06/18 14:36 08/07/18 11:20 BRYANT OQUENDO DO Aug 07, 2018 12:00
[2018-08-07 12:26] LABS: ABG BASE EXCESS 4.9 MMOL/L (-2.5-2.5); ABG OXYGEN SATURATION 78 % (94-100); ABG PCO2 52 MMHG (35-45); ABG PO2 41 MMHG (79-93); ABG TCO2 31.6 MMOL/L (21.0-31.0)
[2018-08-07 12:27] LABS: ABG PH 7.37 (7.37-7.43); PATIENT TEMP 97.6; VENTILATOR NO
--- NOTE | 2018-08-07 12:30 | NUR ---
UPDATED MED REC WITH ORDER SUMMARY REPORT FROM [facility] THAT WAS ON THE CHART. I CALLED [facility] TO VERIFY TRAZODONE DOSE WAS 50 MG 1 QHS
--- NOTE | 2018-08-07 15:03 | NUR ---
Initial hedis abstractor contact: pt observed attempting to help herself to the restroom and she requested help. Electric Motor Control Assembler relayed message to nurse for further assistance. No spiritual affiliation known at this time.
--- NOTE | 2018-08-07 15:11 | NUR ---
PATIENT IS GETTING HER PICC LINE ADJUSTED AT THIS TIME
--- NOTE | 2018-08-07 15:20 | Diagnostic Imaging Report ---
INDICATION: PICC line placement. TIME OF EXAM: 3:08 p.m. COMPARISON: Correlation is made with prior study from one day earlier. FINDINGS: Right upper extremity PICC line appears to be malpositioned. The tip is directed retrograde into the right neck, likely within the right internal jugular vein. This should be pulled back approximately 11 cm and redirected. There is no pneumothorax. IMPRESSION: Malpositioned PICC line, as described. Dictated by: Dictated on workstation # [id number]
--- NOTE | 2018-08-07 16:30 | NUR ---
UNABLE TO OBTAIN PICC LINE ACCESS X 2 ATTEMPTS. LINE ADVANCED INTO IJ ON BOTH SIDES. ATTEMPT TO CONVERT TO MIDLINE ALSO UNSUCCESSFUL. DR OQUENDO NOTIFIED BY PT'S RN.
--- NOTE | 2018-08-07 16:31 | Diagnostic Imaging Report ---
INDICATION: PICC line placement. EXAMINATION: Portable chest at 4:22 p.m. FINDINGS: Left upper extremity PICC line tip is ascending in the left intrajugular vein. There is cardiomegaly with pulmonary vascular congestion. There is a moderate size hiatal hernia. IMPRESSION: Pulmonary venous congestion and hiatal hernia. PICC line is going up the left internal jugular vein rather than across the left innominate vein into the SVC. Dictated by: Dictated on workstation # [id number]
[2018-08-07 16:40] VITALS: BP 132/85
[2018-08-07] MEDS: methylPREDNISolone 40 MG/ML (Solu-MEDROL) VIAL IV SCH (17:50)
[2018-08-07] MEDS: FERROUS SULF 325 MG (IRON) TAB PO SCH (17:50)
[2018-08-07 20:10] VITALS: BP 163/81
[2018-08-07] MEDS ORDERED: NON-FORMULARY MEDICATION 1 EA EA (Lactulose 30 ML) PO SCH (21:00)
[2018-08-07] MEDS ORDERED: NON-FORMULARY MEDICATION 1 EA EA (Simvastatin 80 MG) PO SCH (21:00)
[2018-08-07] MEDS ORDERED: CALCIUM CARBONATE 750 MG PO SCH (21:00)
[2018-08-07] MEDS: cefTRIAXone 1,000 MG/SWFI 10 ML IV PUSH IV SCH ×2 (21:27)
[2018-08-07] MEDS: ATORVASTATIN 40 MG (LIPITOR) TABLET PO SCH (21:27)
[2018-08-07] MEDS: CALCIUM CARBONATE 500 MG (TUMS) TAB.CHEW PO SCH (21:28)
[2018-08-07] MEDS: LACTULOSE SYRUP 10GM/15ML (ENULOSE) 30ML UDC PO SCH (21:28)
[2018-08-08] VITALS (7 sets, daily range): BP systolic 116–141; BP diastolic 75–96
[2018-08-08] MEDS: methylPREDNISolone 40 MG/ML (Solu-MEDROL) VIAL IV SCH ×5 (00:37→23:29)
[2018-08-08] MEDS: PANTOPRAZOLE 20 MG TABLET (PROTONIX) PO SCH (06:42)
[2018-08-08] MEDS: FERROUS SULF 325 MG (IRON) TAB PO SCH ×2 (06:42→17:09)
[2018-08-08] MEDS: CATHETER FLUSH 10 ML SYR IV SCH ×3 (06:43→20:52)
[2018-08-08 07:25] LABS: HEMOGLOBIN 12.3 G/DL (11.5-16.0); MEAN PLATELET VOLUME 10.6 FL (7.4-10.4); RED CELL DISTRIBUTION WIDTH 13.8 % (10.0-14.5); WHITE BLOOD COUNT 5.7 10^3/uL (4.3-11.0)
[2018-08-08] MEDS: RT-ALBUTEROL/IPRATROPIUM 3 ML (DUONEB) VIAL INH SCH ×5 (07:34→22:46)
[2018-08-08 07:48] LABS: BUN/CREATININE RATIO 20; CALCIUM 8.9 MG/DL (8.5-10.1); CARBON DIOXIDE 23 MMOL/L (21-32); CHLORIDE 103 MMOL/L (98-107); CREATININE SERUM 0.76 MG/DL (0.60-1.30); GFR ESTIMATED > 60; GLUCOSE 135 MG/DL (70-105); MAGNESIUM 2.4 MG/DL (1.8-2.4); POTASSIUM 4.6 MMOL/L (3.6-5.0); SODIUM 137 MMOL/L (135-145)
[2018-08-08] MEDS: guaiFENesin (MUCINEX) 600 MG TAB PO SCH ×2 (08:24→20:37)
[2018-08-08] MEDS: LACTULOSE SYRUP 10GM/15ML (ENULOSE) 30ML UDC PO SCH ×2 (08:24→20:37)
[2018-08-08] MEDS: MAGNESIUM OXIDE (MAG-OX)400 MG TAB PO SCH (08:24)
[2018-08-08] MEDS: AZITHROMYCIN 250 MG TAB (ZITHROMAX) PO SCH (08:24)
[2018-08-08] MEDS: ENOXAPARIN 40 MG/0.4 ML (LOVENOX) SYR SC SCH ×2 (08:24→20:36)
[2018-08-08] MEDS: CALCIUM CARBONATE 500 MG (TUMS) TAB.CHEW PO SCH ×2 (08:25→20:38)
[2018-08-08] MEDS ORDERED: NON-FORMULARY MEDICATION 1 EA EA (Pantoprazole Sodium (Protonix) 20 MG) PO SCH (09:00)
[2018-08-08] MEDS ORDERED: NON-FORMULARY MEDICATION 1 EA EA (Magnesium Oxide 400 MG) PO SCH (09:00)
--- NOTE | 2018-08-08 09:08 | NUR ---
SWITCH ADJUSTER RN REPORTED THAT PATIENT PULLED OUT HER IV. DR OQUENDO NOTIFIED THIS MORNING AFTER MORNING REPORT. HE WOULD LIKE US TO TRY TO OBTAIN AN IV SITE IF UNABLE TO DO SO CONSULT ANESTHESIA FOR AN IV.
--- NOTE | 2018-08-08 09:19 | NUR ---
NOTIFIED ANESTHESIA OF IV CONSULT. ALL SUPPLIES IN ROOM REQUESTED.
--- NOTE | 2018-08-08 11:29 | Pulmonary Progress Note ---
Subjective Time Seen by a Provider: 10:05 Subjective/Events-last exam Pt is lethargic Sepsis Event Evaluation Height, Weight, BMI Height: 5'7.00" Weight: 310lbs. 7.0oz. 140.838883ws; 48.6 BMI Method:Stated Focused Exam Lactate Level 08/06/18 14:36: Lactic Acid Level 1.01 Exam Exam Vital Signs Date Time Temp Pulse Resp B/P (MAP) Pulse Ox O2 Delivery O2 Flow Rate FiO2 08/08/18 10:02 17 30.00 08/08/18 08:01 96.9 86 25 141/96 (111) 96 NIV Bilevel 30.00 08/08/18 08:00 NIV Bilevel 3.00 08/08/18 07:34 90 20 94 30.00 08/08/18 07:10 90 08/08/18 03:48 97.5 86 16 138/86 (103) 97 NIV Bilevel 30.00 08/08/18 02:17 93 20 93 30.00 08/08/18 01:00 97 08/08/18 00:20 98.1 93 16 133/85 (101) 97 NIV Bilevel 30.00 08/07/18 22:50 94 20 92 30.00 08/07/18 20:18 92 24 92 30.00 08/07/18 20:10 96.8 102 19 163/81 (108) 93 NIV Bilevel 30.00 08/07/18 20:00 95 Nasal Cannula 3.00 08/07/18 19:00 103 08/07/18 18:58 102 25 94 30.00 08/07/18 16:40 98.7 101 17 132/85 (101) 91 NIV Bilevel 21.00 08/07/18 12:36 99 24 91 21.00 08/07/18 12:20 102 08/07/18 12:10 100 27 92 21.00 08/07/18 12:00 97.6 101 24 131/61 (84) 97 NIV Bilevel I & O 08/08/18 07:00 Intake Total 950 ml Output Total 550 ml Balance 400 ml Height & Weight Height: 5'7.00" Weight: 310lbs. 7.0oz. 140.198261oj; 48.6 BMI Method:Stated General Appearance: Mild Distress, Obese HEENT: PERRL/EOMI, Pharynx Normal Neck: Full Range of Motion, Non Tender, Supple Respiratory: Accessory Muscle Use, Crackles, Decreased Breath Sounds, Respiratory Distress Cardiovascular: Regular Rate, Rhythm, No Gallop Capillary Refill: Less Than 3 Seconds Gastrointestinal: normal bowel sounds, non tender, soft Extremity: Normal Capillary Refill, Normal Inspection, No Pedal Edema Neurologic/Psychiatric: Depressed Affect Skin: Normal Color, Warm/Dry Lymphatic: No Adenopathy Results Lab Laboratory Tests 08/06/18 14:36 08/07/18 11:20 08/08/18 06:12 Assessment/Plan Assessment/Plan Acute on chronic respiratory failure -Continue BiPAP -Unable to obatin IV Morbid obesity with OHS -Pt lost IV. RN is unable to obtain Confusion/MS -Monitor Consider hospice care. BRYANT OQUENDO DO Aug 08, 2018 11:28
--- NOTE | 2018-08-08 11:31 | NUR ---
CALLED DR BELTRAN PER PATIENT'S DAUGHTER'S REQUEST. SHE WOULD LIKE TO TALK TO THE DOCTOR. LEFT MESSAGE ON DR BELTRAN'S PHONE. SENT A TEXT TO HER PHONE WELL.
[2018-08-08] MEDS ORDERED: predniSONE 20 MG TAB PO NR (12:30)
--- NOTE | 2018-08-08 14:02 | Progress Note (SOAP) ---
Subjective Subjective/Events-last exam More oriented and clear this morning, on bipap. Lost IV access and having difficulty obtaining. Review of Systems Date Seen by Provider: Aug 08, 2018 Time Seen by Provider: 10:30 Focused Exam Lactate Level 08/06/18 14:36: Lactic Acid Level 1.01 Objective Exam Last Set of Vital Signs Vital Signs Date Time Temp Pulse Resp B/P (MAP) Pulse Ox O2 Delivery O2 Flow Rate FiO2 08/08/18 13:15 110 08/08/18 12:17 97.3 24 141/81 (101) 98 NIV Bilevel 30.00 Capillary Refill : Less Than 3 Seconds I&O Intake and Output 08/08/18 00:00 Intake Total 800 ml Output Total 550 ml Balance 250 ml Intake Oral 800 ml Output Urine Total 550 ml # Voids 4 # Urine Diapers 1 General: Alert, Mild Distress Lungs: Clear to Auscultation Heart: Regular Rate, No Murmurs Abdomen: Normal Bowel Sounds, Soft Neuro: Normal Speech Psych/Mental Status: Mood NL Results/Procedures Lab Laboratory Tests 08/08/18 06:12: White Blood Count 5.7, Red Blood Count 4.20L, Hemoglobin 12.3, Hematocrit 39, Mean Corpuscular Volume 93, Mean Corpuscular Hemoglobin 29, Mean Corpuscular Hem oglobin Concent 32, Red Cell Distribution Width 13.8, Platelet Count 152, Mean Platelet Volume 10.6H, Sodium Level 137, Potassium Level 4.6, Chloride Level 103, Carbon Dioxide Level 23, Anion Gap 11, Blood Urea Nitrogen 15, Creatinine 0.76, Estimat Glomerular Filtration Rate > 60, BUN/Creatinine Ratio 20, Glucose Level 135H, Calcium Level 8.9, Magnesium Level 2.4 Microbiology 08/06/18 Blood Culture - Preliminary, Resulted No growth Radiology Head CT 08/06 without acute abnormality Bilateral LE venous dopplers 08/06 with no DVT CXR 08/06 with right cardiophrenic angle density Assessment/Plan Assessment/Plan (1) Confusion Status: Acute Assessment & Plan: Unknown baseline, no family present, but was reportedly in senior behavioral health recently and started on depakote. Holding depakote, pt remains difficult to understand and somewhat lethargic, will check ABG given increased work of breathing. Head CT okay on admit. 08/08- improved today, discussed with daughter who reports she has occasional memory problems, but no diagnosis of dementia and previous to the last week or so was ambulatory independently. (2) General weakness Status: Acute Assessment & Plan: Unclear etiology, possibly infection related, when more alert will have PT/OT eval. Possibly related to depakote initiation. (3) Right lower lobe pneumonia Status: Acute Assessment & Plan: Started on rocephin and azithromycin in ER, will continue. Qualifiers: Qualified Codes: J18.1 - Lobar pneumonia, unspecified organism (4) Hypoxia Status: Acute Assessment & Plan: She denies using oxygen usually, has markedly increased work of breathing and is not leaving supplemental oxygen in place well. Repeat ABG and consult Dr. Macias. 08/08 were unable to obtain ABG yesterday, started on bipap and work of breathing is better and mental status better. (5) UTI (urinary tract infection) Status: Acute Assessment & Plan: Previous to admission was being treated with Keflex, will be covered with ceftriaxone for pneumonia. Qualifiers: Qualified Codes: N39.0 - Urinary tract infection, site not specified (6) DVT prophylaxis Status: Acute Assessment & Plan: Enoxaparin Clinical Quality Measures DVT/VTE Risk/Contraindication: Risk Factor Score Per Nursin RFS Level Per Nursing on Admit: 4+=Very High RUIZ BELTRAN MD Aug 08, 2018 14:02
--- NOTE | 2018-08-08 15:01 | Anesthesia-Procedure Note ---
Procedures/Interventions Procedure Start/Stop/Diagnosis Date of Procedure: Aug 08, 2018 Start Time: 14:09 Stop Time: 14:23 Central Line/IV Access IV : Location: Right Site: Forearm IV Catheter Type: Peripheral IV IV Catheter Gauge: 20 Progress completed JESSY MARTINEZ CRNA Aug 08, 2018 15:01
--- NOTE | 2018-08-08 15:22 | NUR ---
CM/SS as requested spoke with the patient and her family about DPOA paperwork. Provided some information for them to consider and let them know if they would like to complete the DPOA paperwork, then it could be completed while at the hospital. They will discuss and let know if they would like to complete.
[2018-08-08] MEDS: ATORVASTATIN 40 MG (LIPITOR) TABLET PO SCH (20:37)
[2018-08-08] MEDS: cefTRIAXone 1,000 MG/SWFI 10 ML IV PUSH IV SCH ×2 (20:37)
[2018-08-09] VITALS (7 sets, daily range): BP systolic 113–147; BP diastolic 67–87
[2018-08-09] MEDS: RT-ALBUTEROL/IPRATROPIUM 3 ML (DUONEB) VIAL INH SCH ×4 (01:52→20:34)
[2018-08-09 06:30] LABS: HEMOGLOBIN 12.5 G/DL (11.5-16.0); MEAN PLATELET VOLUME 11.3 FL (7.4-10.4); RED CELL DISTRIBUTION WIDTH 14.3 % (10.0-14.5); WHITE BLOOD COUNT 8.3 10^3/uL (4.3-11.0)
[2018-08-09 06:48] LABS: BUN/CREATININE RATIO 33; CALCIUM 8.5 MG/DL (8.5-10.1); CARBON DIOXIDE 23 MMOL/L (21-32); CHLORIDE 103 MMOL/L (98-107); CREATININE SERUM 0.75 MG/DL (0.60-1.30); GFR ESTIMATED > 60; GLUCOSE 127 MG/DL (70-105); POTASSIUM 4.3 MMOL/L (3.6-5.0); SODIUM 138 MMOL/L (135-145)
[2018-08-09] MEDS: PANTOPRAZOLE 20 MG TABLET (PROTONIX) PO SCH (07:42)
[2018-08-09] MEDS: FERROUS SULF 325 MG (IRON) TAB PO SCH ×2 (07:42→17:36)
[2018-08-09] MEDS: methylPREDNISolone 40 MG/ML (Solu-MEDROL) VIAL IV SCH ×3 (07:42→17:36)
[2018-08-09] MEDS: CATHETER FLUSH 10 ML SYR IV SCH ×3 (07:43→20:14)
[2018-08-09] MEDS: LACTULOSE SYRUP 10GM/15ML (ENULOSE) 30ML UDC PO SCH ×2 (09:07→20:12)
[2018-08-09] MEDS: ENOXAPARIN 40 MG/0.4 ML (LOVENOX) SYR SC SCH ×2 (09:08→20:11)
[2018-08-09] MEDS: CALCIUM CARBONATE 500 MG (TUMS) TAB.CHEW PO SCH ×2 (09:09→20:12)
[2018-08-09] MEDS: AZITHROMYCIN 250 MG TAB (ZITHROMAX) PO SCH (09:09)
[2018-08-09] MEDS: guaiFENesin (MUCINEX) 600 MG TAB PO SCH ×2 (09:09→20:12)
[2018-08-09] MEDS: MAGNESIUM OXIDE (MAG-OX)400 MG TAB PO SCH (09:09)
--- NOTE | 2018-08-09 10:15 | Pulmonary Progress Note ---
Subjective Time Seen by a Provider: 10:15 Subjective/Events-last exam Pt's MS has improved. Sepsis Event Evaluation Height, Weight, BMI Height: 5'7.00" Weight: 310lbs. 7.0oz. 140.214189yq; 48.6 BMI Method:Stated Focused Exam Lactate Level 08/06/18 14:36: Lactic Acid Level 1.01 Exam Exam Vital Signs Date Time Temp Pulse Resp B/P (MAP) Pulse Ox O2 Delivery O2 Flow Rate FiO2 08/09/18 08:12 97.7 88 24 137/87 (104) 92 Room Air 0.00 08/09/18 07:13 91 Room Air 08/09/18 07:02 91 08/09/18 04:41 97.9 81 20 130/80 (97) 95 NIV Bilevel 30.00 08/09/18 01:53 78 15 94 30.00 08/09/18 01:00 82 08/09/18 00:00 97.0 88 18 118/75 (89) 91 NIV Bilevel 30.00 08/08/18 22:46 87 15 93 30.00 08/08/18 20:25 98.4 94 20 121/80 (94) 94 Nasal Cannula 3.00 08/08/18 20:23 94 23 94 30.00 08/08/18 20:00 NIV Bilevel 3.00 08/08/18 19:00 91 08/08/18 16:25 98.8 90 20 116/75 (89) 95 NIV Bilevel 30.00 08/08/18 15:34 98 17 95 30.00 08/08/18 13:15 110 08/08/18 12:17 97.3 99 24 141/81 (101) 98 NIV Bilevel 30.00 08/08/18 11:36 97 27 96 30.00 I & O 08/09/18 07:00 Intake Total 1870 ml Output Total 900 ml Balance 970 ml Height & Weight Height: 5'7.00" Weight: 310lbs. 7.0oz. 140.566476ff; 48.6 BMI Method:Stated General Appearance: Anxious, Obese HEENT: PERRL/EOMI, Normal ENT Inspection, Pharynx Normal Neck: Full Range of Motion, Non Tender, Supple Respiratory: Chest Non Tender, No Accessory Muscle Use, No Respiratory Distress, Decreased Breath Sounds Cardiovascular: Regular Rate, Rhythm, No Edema, No Gallop Capillary Refill: Less Than 3 Seconds Gastrointestinal: normal bowel sounds, non tender, soft Extremity: Normal Capillary Refill, Normal Inspection, No Pedal Edema Neurologic/Psychiatric: Alert, Oriented x3 Skin: Normal Color, Warm/Dry Lymphatic: No Adenopathy Results Lab Laboratory Tests 08/07/18 11:20 08/08/18 06:12 08/09/18 06:21 Assessment/Plan Assessment/Plan Acute on chronic respiratory failure -Continue BiPAP Morbid obesity with OHS -Pt lost IV. RN is unable to obtain Confusion/MS - improved -Monitor BRYANT OQUENDO DO Aug 09, 2018 10:15
--- NOTE | 2018-08-09 14:45 | Progress Note (SOAP) ---
Subjective Subjective/Events-last exam Afebrile, no acute events. Doing much better, off bipap and on room air this am. Review of Systems Date Seen by Provider: Aug 09, 2018 Time Seen by Provider: 11:30 Objective Exam Last Set of Vital Signs Vital Signs Date Time Temp Pulse Resp B/P (MAP) Pulse Ox O2 Delivery O2 Flow Rate FiO2 08/09/18 13:26 97.6 107 22 113/71 (85) 92 Room Air 0.00 08/09/18 11:24 21 Capillary Refill : Less Than 3 Seconds I&O Intake and Output 08/09/18 00:00 Intake Total 1920 ml Output Total 700 ml Balance 1220 ml Intake Oral 1920 ml Output Urine Total 700 ml # Voids 2 # Urine Diapers 2 # Bowel Movements 2 General: Alert, Mild Distress Lungs: Other (wheezing) Heart: Regular Rate Abdomen: Normal Bowel Sounds, Soft Neuro: Normal Speech Psych/Mental Status: Mental Status NL Results/Procedures Lab Laboratory Tests 08/09/18 06:21: White Blood Count 8.3, Red Blood Count 4.20L, Hemoglobin 12.5, Hematocrit 39, Mean Corpuscular Volume 92, Mean Corpuscular Hemoglobin 30, Mean Corpuscular Hemoglobin Concent 33, Red Cell Distribution Width 14.3, Platelet Count 86L, Mean Platelet Volume 11.3H, Sodium Level 138, Potassium Level 4.3, Chloride Level 103, Carbon Dioxide Level 23, Anion Gap 12, Blood Urea Nitrogen 25H, Creatinine 0.75, Estimat Glomerular Filtration Rate > 60, BUN/Creatinine Ratio 33, Glucose Level 127H, Calcium Level 8.5 Microbiology 08/06/18 Blood Culture - Preliminary, Resulted No growth Radiology Head CT 08/06 without acute abnormality Bilateral LE venous dopplers 08/06 with no DVT CXR 08/06 with right cardiophrenic angle density Assessment/Plan Assessment/Plan (1) Confusion Status: Resolved Assessment & Plan: Unknown baseline, no family present, but was reportedly in senior behavioral health recently and started on depakote. Holding depakote, pt remains difficult to understand and somewhat lethargic, will check ABG given increased work of breathing. Head CT okay on admit. 08/08- improved today, discussed with daughter who reports she has occasional memory problems, but no diagnosis of dementia and previous to the last week or so was ambulatory independently. (2) General weakness Status: Acute Assessment & Plan: Unclear etiology, possibly infection related, when more alert will have PT/OT eval. Possibly related to depakote initiation. (3) Right lower lobe pneumonia Status: Acute Assessment & Plan: Started on rocephin and azithromycin in ER, will continue. Qualifiers: Qualified Codes: J18.1 - Lobar pneumonia, unspecified organism (4) Hypoxia Status: Acute Assessment & Plan: She denies using oxygen usually, has markedly increased work of breathing and is not leaving supplemental oxygen in place well. Repeat ABG and consult Dr. Macias. 08/08 were unable to obtain ABG yesterday, started on bipap and work of breathing is better and mental status better. 08/09 improved, on room air this am. (5) UTI (urinary tract infection) Status: Acute Assessment & Plan: Previous to admission was being treated with Keflex, will be covered with ceftriaxone for pneumonia. Qualifiers: Qualified Codes: N39.0 - Urinary tract infection, site not specified (6) DVT prophylaxis Status: Acute Assessment & Plan: Enoxaparin Clinical Quality Measures DVT/VTE Risk/Contraindication: Risk Factor Score Per Nursin RFS Level Per Nursing on Admit: 4+=Very High RIUZ BELTRAN MD Aug 09, 2018 14:44
--- NOTE | 2018-08-09 15:45 | Physical Therapy Evaluation ---
PT Evaluation-General Medical Diagnosis Admission Date Aug 08, 2018 at 10:00 Medical Diagnosis: AMS/dyspnea Onset Date: Aug 08, 2018 Therapy Diagnosis Therapy Diagnosis: debility/weakness Height/Weight Height (Feet): 5 Height (Inches): 7.00 Weight (Pounds): 310 Weight (Ounces): 7.0 Precautions Precautions/Isolations: Fall Prevention, Standard Precautions Weight Bear Status Right Lower Extremity: Right Weight Bearing/Tolerated Left Lower Extremity: Left Weight Bearing/Tolerated Referral Physician: Leonidas Reason for Referral: Evaluation/Treatment Medical History Pertinent Medical History: Heart Failure Additional Medical History recent stay in [facility]/morbid obesity Current History ER via family secondary to weakness and bilateral LE edema Reviewed History: Yes Social History Home: Intermediate Prior/Core FIM Prior Level of Function Therapy Code Descriptions/Definitions Functional Central Measure: 0=Not Assessed/NA 4=Minimal Assistance 1=Total Assistance 5=Supervision or Setup 2=Maximal Assistance 6=Modified Central 3=Moderate Assistance 7=Complete Central Therapy Quality Codes: 6 Independent with activity with or without an assistive device 5 Patient requires set up or clean up by helper. Patient completes activity by themselves 4 Supervision or touching assist (CGA). [place] provide cues , steadying assist 3 The helper provides less than half the effort to complete the activity 2 The helper provides more than half the effort to complete the activity 1 Dependent. The helper does all the effort to complete an activity 7 Patient refused to complete or attempt activity 9 The patient did not perform the activity before the current illness or injury 88 Not attempted due to Medical conditions or safety concerns Functional Abilities and Goals: Independent: Patient completed the activities by him/herself, with or without an assistive device, with no assistance from a helper. Needed Some Help: Patient needed partial assistance from another person to complete activities. Dependent: A helper completed the activities for the patient. Unknown: Not Applicable: Bed Mobility: 5 Transfers (B,C,W/C) (FIM): 5 Gait: 2 Indoor Mobility (Ambulation): Independent Stairs: Not [place] Prior Devices Use: Manual wheelchair, Walker PT Evaluation-Current Subjective Patient is very confused and verbal. Objective Patient Orientation: Confused Problem Solving: Poor ROM/Strength ROM Lower Extremities bilateral LE functional, however, morbid obesity limited full range Strength Lower Extremities 4-/5 grossly bilaterally Integumentary/Posture Integumentary refer to nursing notes/noted redness distal LE's Bowel Incontinence: Yes Bladder Incontinence: Yes Posture trunk flexed posture in stand with FWW Neuromuscular (Tone, Coordination, Reflexes) grossly intact Sensory Vision: Functional Hearing: Functional Sensation Right Lower Extremit: Impaired Sensation Left Lower Extremity: Impaired Transfers Therapy Code Descriptions/Definitions Functional Central Measure: 0=Not Assessed/NA 4=Minimal Assistance 1=Total Assistance 5=Supervision or Setup 2=Maximal Assistance 6=Modified Central 3=Moderate Assistance 7=Complete Central Transfers (B, C, W/C) (FIM): 5 Scootin Supine to/from Sit: 5 Sit to/from Stand: 5 Gait Mode of Locomotion: Both Anticipated Mode of Locomotion: Both Balance Sitting Static: Normal Sitting Dynamic: Normal Standing Static: Fair Standing Dynamic: Fair Assessment/Needs 73 y.o. female, is very confused and has difficulty with following simple direct ion. Patient is very concerned that her daughter is not here with her. Patient, upon standing, impulsively sat EOB and refused to ambulate. Patient returned to bed with all 4 rails up and GLASS LINED TANK REPAIRER present. PT to address gross motor skills at tolerated by patient. Rehab Potential: Guarded PT Short Term Goals Short Term Goals Time Frame: Aug 14, 2018 Transfers (B,C,W/C) (FIM): 5 Gait (FIM): 2 Distance (FIM): 2=306-45 ft Gait Distance Comment: 50' Gait Level of Assist: 5 Gait Assistive Device: FWW PT Plan Problem List Problem List: Activity Tolerance, Functional Strength, Safety, Balance, Gait, Transfer Treatment/Plan Treatment Plan: Continue Plan of Care Treatment Plan: Bed Mobility, Education, Functional Activity Edison, Functional Strength, Gait, Safety, Therapeutic Exercise, Transfers Treatment Duration: Aug 14, 2018 Frequency: 6 times per week Estimated Hrs Per Day: .25 hour per day Patient and/or Family Agrees t: Yes Discharge Recommendations Therapy D/C Recommendations: Intermediate Placement Time/GCodes Time In: 1306 Time Out: 1324 Total Billed Treatment Time: 18 Total Billed Treatment 1 visit EVModC 18 min JOAQUIN RG PT Aug 09, 2018 15:45
--- NOTE | 2018-08-09 15:52 | Occupational Therapy Eval ---
OT Evaluation-General/PLF Medical Diagnosis Admission Date Aug 08, 2018 at 10:00 Medical Diagnosis: AMS/dyspnea Onset Date: Aug 08, 2018 Therapy Diagnosis Therapy Diagnosis: decreased self care skills Height/Weight Height (Feet): 5 Height (Inches): 7.00 Weight (Pounds): 310 Weight (Ounces): 7.0 Precautions Precautions/Isolations: Fall Prevention, Standard Precautions Safety Interventions: Bed Exit Alarm Referral Physician: Leonidas Medical History Pertinent Medical History: Heart Failure, HTN Additional Medical History depression, UTI-chronic Reviewed History: Yes Social History Home: Residential ADL-Prior Level of Function Therapy Code Descriptions/Definitions Functional Coden Measure: 0=Not Assessed/NA 4=Minimal Assistance 1=Total Assistance 5=Supervision or Setup 2=Maximal Assistance 6=Modified Coden 3=Moderate Assistance 7=Complete Coden Therapy Quality Codes: 6 Independent with activity with or without an assistive device 5 Patient requires set up or clean up by helper. Patient completes activity by themselves 4 Supervision or touching assist (CGA). [place] provide cues , steadying assist 3 The helper provides less than half the effort to complete the activity 2 The helper provides more than half the effort to complete the activity 1 Dependent. The helper does all the effort to complete an activity 7 Patient refused to complete or attempt activity 9 The patient did not perform the activity before the current illness or injury 88 Not attempted due to Medical conditions or safety concerns Functional Abilities and Goals: Independent: Patient completed the activities by him/herself, with or without an assistive device, with no assistance from a helper. Needed Some Help: Patient needed partial assistance from another person to complete activities. Dependent: A helper completed the activities for the patient. Unknown: Not Applicable: ADL PLOF Comments Pt unable to provide detailed information regarding PLOF. Only states she was able to complete most ADLs and walks with walker. Self Care: Unknown Functional Cognition: Unknown OT Current Status Subjective Pt in bed, confused. Mental Status/Objective Patient Orientation: Person, Confused Current Hand Dominance: Right Upper Extremity ROM Right UE grossly WFL Left UE decreased shoulder ROM. Upper Extremity Coordination decreased Upper Extremity Strength decreased bilaterally ADL-Treatment ADL-Current Pt participated in UE assessment while in bed, declined OOB activity. Pt washed face, but declined other grooming tasks. Pt is concerned about when her daughter is coming to see her, states she doesn't want to do anything else until her daughter arrives. Pt resting in bed with needs met. Therapy Code Descriptions/Definitions Functional Coden Measure: 0=Not Assessed/NA 4=Minimal Assistance 1=Total Assistance 5=Supervision or Setup 2=Maximal Assistance 6=Modified Coden 3=Moderate Assistance 7=Complete Coden Therapy Quality Codes: 6 Independent with activity with or without an assistive device 5 Patient requires set up or clean up by helper. Patient completes activity by themselves 4 Supervision or touching assist (CGA). [place] provide cues , steadying assist 3 The helper provides less than half the effort to complete the activity 2 The helper provides more than half the effort to complete the activity 1 Dependent. The helper does all the effort to complete an activity 7 Patient refused to complete or attempt activity 9 The patient did not perform the activity before the current illness or injury 88 Not attempted due to Medical conditions or safety concerns Education OT Patient Education: Rehab process Teaching Recipient: Patient Teaching Methods: Discussion Response to Teaching: Unable to Comprehend OT Short Term Goals Short Term Goals Transfers (B,C,W/C) (FIM): 5 1=Demonstrate adherence to instructed precautions during ADL tasks. 2=Patient will verbalize/demonstrate understanding of assistive devices/modifications for ADL. 3=Patient will improve strength/tolerance for activity to enable patient to perform ADL's. OT Pulmonary Function Technician Goals Pulmonary Function Technician Goals Time Frame: Aug 23, 2018 Grooming(FIM): 6 Upper Body Dressing(FIM): 5 Lower Body Dressing(FIM): 4 Toileting(FIM): 4 Toilet/Commode Transfer(FIM): 5 Additional Goals: 2-Verbalize Understanding, 3-ImproveStrength/Edison 1=Demonstrate adherence to instructed precautions during ADL tasks. 2=Patient will verbalize/demonstrate understanding of assistive devices/modifications for ADL. 3=Patient will improve strength/tolerance for activity to enable patient to perform ADL's. OT Education/Plan Problem List/Assessment Assessment: Decreased Activ Tolerance, Decreased UE Strength, Dependent Transfers, Impaired Self-Care Skills Pt to benefit from skilled OT intervention for ADL training, transfers, strengthening, and safety education to increase independence and allow safe discharge plan Discharge Recommendations Plan/Recommendations: Continue POC Treatment Plan/Plan of Care Treatment,Training & Education: Yes Patient would benefit from OT for education, treatment and training to promote independence in ADL's, mobility, safety and/or upper extremity function for ADL's. Plan of Care: ADL Retraining, Functional Mobility, UE Funct Exercise/Act Treatment Duration: Aug 23, 2018 Frequency: 5 times per week Estimated Hrs Per Day: .25 hour per day Rehab Potential: Guarded Time/GCodes Start Time: 15:30 Stop Time: 15:42 Total Time Billed (hr/min): 12 Billed Treatment Time 1, visit, EVM(12minutes) SHARYN SEPULVEDA OT Aug 09, 2018 15:52
[2018-08-09] MEDS: ATORVASTATIN 40 MG (LIPITOR) TABLET PO SCH (20:12)
[2018-08-09] MEDS: cefTRIAXone 1,000 MG/SWFI 10 ML IV PUSH IV SCH ×2 (20:12)
[2018-08-10] VITALS: BP 125/79
[2018-08-10] MEDS: methylPREDNISolone 40 MG/ML (Solu-MEDROL) VIAL IV SCH ×4 (01:04→17:44)
[2018-08-10 04:43] VITALS: BP 128/84
[2018-08-10 05:29] LABS: HEMOGLOBIN 12.2 G/DL (11.5-16.0); MEAN PLATELET VOLUME 10.2 FL (7.4-10.4); RED CELL DISTRIBUTION WIDTH 14.3 % (10.0-14.5); WHITE BLOOD COUNT 8.1 10^3/uL (4.3-11.0)
[2018-08-10 05:49] LABS: BUN/CREATININE RATIO 38; CALCIUM 8.7 MG/DL (8.5-10.1); CARBON DIOXIDE 24 MMOL/L (21-32); CHLORIDE 106 MMOL/L (98-107); CREATININE SERUM 0.79 MG/DL (0.60-1.30); GFR ESTIMATED > 60; GLUCOSE 112 MG/DL (70-105); POTASSIUM 4.3 MMOL/L (3.6-5.0); SODIUM 139 MMOL/L (135-145)
[2018-08-10] MEDS: CATHETER FLUSH 10 ML SYR IV SCH ×3 (05:57→20:28)
[2018-08-10] MEDS: FERROUS SULF 325 MG (IRON) TAB PO SCH ×2 (05:57→17:01)
[2018-08-10] MEDS: PANTOPRAZOLE 20 MG TABLET (PROTONIX) PO SCH (05:58)
[2018-08-10] MEDS: MAGNESIUM OXIDE (MAG-OX)400 MG TAB PO SCH (07:36)
[2018-08-10] MEDS: ENOXAPARIN 40 MG/0.4 ML (LOVENOX) SYR SC SCH ×2 (07:37→20:27)
[2018-08-10] MEDS: RT-ALBUTEROL/IPRATROPIUM 3 ML (DUONEB) VIAL INH SCH ×2 (07:47→19:22)
[2018-08-10 08:00] VITALS: BP 125/78
[2018-08-10] MEDS: CALCIUM CARBONATE 500 MG (TUMS) TAB.CHEW PO SCH ×2 (09:52→20:26)
[2018-08-10] MEDS: AZITHROMYCIN 250 MG TAB (ZITHROMAX) PO SCH (09:52)
[2018-08-10] MEDS: guaiFENesin (MUCINEX) 600 MG TAB PO SCH ×2 (09:52→20:24)
[2018-08-10] MEDS: LACTULOSE SYRUP 10GM/15ML (ENULOSE) 30ML UDC PO SCH ×2 (09:53→20:24)
[2018-08-10 12:00] VITALS: BP 134/89
--- NOTE | 2018-08-10 14:09 | Physical Therapy Daily Note ---
PT Daily Note-Current Subjective Pt in bed, confused. Perseverating on where her daughter was and that she was coming to pick her up. "I can't stay in this place, I can't pay for it". Initially refusing PT "I can't afford to pay you" but agreeable after this PT phoned daughterat Pt's request and daughter was able to reassure Pt. Mental Status Patient Orientation: Person, Confused, Place Transfers Therapy Code Descriptions/Definitions Functional [place] Measure: 0=Not Assessed/NA 4=Minimal Assistance 1=Total Assistance 5=Supervision or Setup 2=Maximal Assistance 6=Modified [place] 3=Moderate Assistance 7=Complete [place] Therapy Quality Codes: 6 Independent with activity with or without an assistive device 5 Patient requires set up or clean up by helper. Patient completes activity by themselves 4 Supervision or touching assist (CGA). [place] provide cues , steadying assist 3 The helper provides less than half the effort to complete the activity 2 The helper provides more than half the effort to complete the activity 1 Dependent. The helper does all the effort to complete an activity 7 Patient refused to complete or attempt activity 9 The patient did not perform the activity before the current illness or injury 88 Not attempted due to Medical conditions or safety concerns Transfers (B, C, W/C) (FIM): 3 Scootin Supine to/from Sit: 3 Sit to/from Stand: 4 Weight Bearing Right Lower Extremity: Right Weight Bearing/Tolerated Left Lower Extremity: Left Weight Bearing/Tolerated Treatments Transfer training, standing balance. Pt moved supine->sit with mod A x 1. Sit<- >stand at EOB x 3 trials to FWW with min A x 1 and max skilled VCS for sequencing. Pt stood 5' x 1 and 8' x 1 for dependent rodriguez-care, bed change by NA. Pt stood with flexed posture, leaning on walker. Able to achieve upright posture with skilled VCS but fatigued quickly and resumed flexed posture. Side steps to HOB x 3 with CGA x 1. Returned to bed with mod A x 1, dependent A x 2 to move up in bed. Pt in bed with all needs met, rails up. Assessment Current Status: Good Progress Pt tolerated fair-well. Close supervision as Pt remains impulsive while at EOB. PT Short Term Goals Short Term Goals Time Frame: Aug 14, 2018 Transfers (B,C,W/C) (FIM): 5 Gait (FIM): 2 Distance (FIM): 8=822-28 ft Gait Distance Comment: 50' Gait Level of Assist: 5 Gait Assistive Device: FWW PT Plan Problem List Problem List: Activity Tolerance, Functional Strength, Safety, Balance, Gait, Transfer, Bed Mobility, ROM Treatment/Plan Treatment Plan: Continue Plan of Care Treatment Plan: Bed Mobility, Education, Functional Activity Edison, Functional Strength, Gait, Safety, Therapeutic Exercise, Transfers Treatment Duration: Aug 14, 2018 Frequency: 6 times per week Estimated Hrs Per Day: .25 hour per day Patient and/or Family Agrees t: Yes Safety Risks/Education Patient Education: Transfer Techniques, Safety Issues Teaching Recipient: Patient Teaching Methods: Discussion Response to Teaching: Reinforcement Needed Discharge Recommendations Barriers to Progress AMS Time/GCodes Time In: 1118 Time Out: 1203 Total Billed Treatment Time: 45 Total Billed Treatment 1, FA x 45' G Codes Necessary: DAISY Fuller DPT Aug 10, 2018 14:09
--- NOTE | 2018-08-10 15:01 | Progress Note (SOAP) ---
Subjective Subjective/Events-last exam Continues to improve, stable on room air this morning and states she is feeling pretty well. Review of Systems Date Seen by Provider: Aug 10, 2018 Time Seen by Provider: 12:45 Objective Exam Last Set of Vital Signs Vital Signs Date Time Temp Pulse Resp B/P (MAP) Pulse Ox O2 Delivery O2 Flow Rate FiO2 08/10/18 08:00 Room Air 08/10/18 08:00 98.7 100 22 125/78 (94) 91 08/09/18 13:26 0.00 08/09/18 11:24 21 Capillary Refill : Less Than 3 SecondsLess Than 3 Seconds I&O Intake and Output 08/10/18 00:00 Intake Total 1420 ml Output Total 900 ml Balance 520 ml Intake Oral 1420 ml Output Urine Total 900 ml # Urine Diapers 1 # Bowel Movements 4 General: Alert, No Acute Distress Lungs: Other (wheezing) Heart: Regular Rate Abdomen: Normal Bowel Sounds, Soft Extremities: Other (trace edema, no erythema) Neuro: Normal Speech Results/Procedures Lab Laboratory Tests 08/10/18 05:11: White Blood Count 8.1, Red Blood Count 4.13L, Hemoglobin 12.2, Hematocrit 38, Mean Corpuscular Volume 93, Mean Corpuscular Hemoglobin 30, Mean Corpuscular Hemoglobin Concent 32, Red Cell Distribution Width 14.3, Platelet Count 213, Mean Platelet Volume 10.2, Sodium Level 139, Potassium Level 4.3, Chloride Level 106, Carbon Dioxide Level 24, Anion Gap 9, Blood Urea Nitrogen 30H, Creatinine 0.79, Estimat Glomerular Filtration Rate > 60, BUN/Creatinine Ratio 38, Glucose Level 112H, Calcium Level 8.7 Microbiology 08/06/18 Blood Culture - Preliminary, Resulted No growth Radiology Head CT 08/06 without acute abnormality Bilateral LE venous dopplers 08/06 with no DVT CXR 08/06 with right cardiophrenic angle density Assessment/Plan Assessment/Plan (1) Confusion Status: Resolved Assessment & Plan: Unknown baseline, no family present, but was reportedly in senior behavioral health recently and started on depakote. Holding depakote, pt remains difficult to understand and somewhat lethargic, will check ABG given increased work of breathing. Head CT okay on admit. 08/08- improved today, discussed with daughter who reports she has occasional memory problems, but no diagnosis of dementia and previous to the last week or so was ambulatory independently. (2) General weakness Status: Acute Assessment & Plan: Unclear etiology, possibly infection related, when more alert will have PT/OT eval. Possibly related to depakote initiation. PT/OT notes state she was not entirely cooperative with treatment, pt states she is doing well, but sounds as if she is not at baseline currently, continue to work with therapy. (3) Right lower lobe pneumonia Status: Acute Assessment & Plan: Started on rocephin and azithromycin in ER, will continue. Qualifiers: Qualified Codes: J18.1 - Lobar pneumonia, unspecified organism (4) Hypoxia Status: Resolved Assessment & Plan: She denies using oxygen usually, has markedly increased work of breathing and is not leaving supplemental oxygen in place well. Repeat ABG and consult Dr. Macias. 08/08 were unable to obtain ABG yesterday, started on bipap and work of breathing is better and mental status better. 08/09 improved, on room air this am. (5) UTI (urinary tract infection) Status: Acute Assessment & Plan: Previous to admission was being treated with Keflex, will be covered with ceftriaxone for pneumonia. Qualifiers: Qualified Codes: N39.0 - Urinary tract infection, site not specified (6) DVT prophylaxis Status: Acute Assessment & Plan: Enoxaparin Clinical Quality Measures DVT/VTE Risk/Contraindication: Risk Factor Score Per Nursin RFS Level Per Nursing on Admit: 4+=Very High RUIZ BELTRAN MD Aug 10, 2018 15:00
[2018-08-10 16:26] VITALS: BP 161/102
[2018-08-10] MEDS ORDERED: HYDROCHLOROTHIAZIDE 25 MG (HCTZ) TAB PO ONE (17:15)
[2018-08-10 19:46] VITALS: BP 144/85
[2018-08-10] MEDS: ATORVASTATIN 40 MG (LIPITOR) TABLET PO SCH (20:24)
[2018-08-10] MEDS: cefTRIAXone 1,000 MG/SWFI 10 ML IV PUSH IV SCH ×2 (20:29)
[2018-08-11] VITALS: BP 156/82
[2018-08-11] MEDS: methylPREDNISolone 40 MG/ML (Solu-MEDROL) VIAL IV SCH (00:01)
[2018-08-11 04:00] VITALS: BP 128/80
[2018-08-11 05:12] LABS: HEMOGLOBIN 12.7 G/DL (11.5-16.0); MEAN PLATELET VOLUME 10.5 FL (7.4-10.4); RED CELL DISTRIBUTION WIDTH 14.4 % (10.0-14.5); WHITE BLOOD COUNT 8.2 10^3/uL (4.3-11.0)
[2018-08-11 05:26] LABS: BUN/CREATININE RATIO 34; CALCIUM 8.6 MG/DL (8.5-10.1); CARBON DIOXIDE 23 MMOL/L (21-32); CHLORIDE 103 MMOL/L (98-107); CREATININE SERUM 0.79 MG/DL (0.60-1.30); GFR ESTIMATED > 60; GLUCOSE 112 MG/DL (70-105); SODIUM 136 MMOL/L (135-145)
--- NOTE | 2018-08-11 06:04 | Pulmonary Progress Note ---
Subjective Time Seen by a Provider: 09:56 Subjective/Events-last exam Pt is doing better. Sepsis Event Evaluation Height, Weight, BMI Height: 5'7.00" Weight: 310lbs. 7.0oz. 140.906121bl; 48.6 BMI Method:Stated Exam Exam Vital Signs Date Time Temp Pulse Resp B/P (MAP) Pulse Ox O2 Delivery O2 Flow Rate FiO2 08/11/18 04:00 97.8 84 20 128/80 (96) 93 Room Air 08/11/18 02:45 75 19 95 30.00 08/11/18 00:00 96.7 87 22 156/82 (106) 92 Room Air 08/10/18 22:40 93 24 95 30.00 08/10/18 20:00 Room Air 08/10/18 19:46 98.4 96 22 144/85 (104) 92 Room Air 08/10/18 19:22 90 Room Air 08/10/18 16:26 98.7 101 22 161/102 (121) 94 Room Air 08/10/18 12:00 98.1 98 20 134/89 (104) 92 Room Air 08/10/18 08:00 Room Air 08/10/18 08:00 98.7 100 22 125/78 (94) 91 Room Air 08/10/18 07:47 93 Room Air 08/10/18 07:00 107 I & O 08/11/18 07:00 Intake Total 1400 ml Output Total 1050 ml Balance 350 ml Height & Weight Height: 5'7.00" Weight: 310lbs. 7.0oz. 140.904964ld; 48.6 BMI Method:Stated General Appearance: No Apparent Distress, WD/WN HEENT: PERRL/EOMI, Pharynx Normal Neck: Full Range of Motion, Non Tender, Supple, Carotid Bruit Respiratory: No Accessory Muscle Use, No Respiratory Distress, Decreased Breath Sounds Cardiovascular: Regular Rate, Rhythm, No Edema, No Gallop Capillary Refill: Less Than 3 Seconds Gastrointestinal: normal bowel sounds, non tender, soft Extremity: Normal Capillary Refill, Normal Inspection, No Pedal Edema Neurologic/Psychiatric: Alert, Oriented x3 Skin: Normal Color, Warm/Dry Lymphatic: No Adenopathy Results Lab Laboratory Tests 08/09/18 06:21 08/10/18 05:11 08/11/18 04:35 Assessment/Plan Assessment/Plan Acute on chronic respiratory failure -Continue BiPAP PRN -Change Solumedrol to prednisone taper RLL infiltrate - Doubt PNA -No fever or leukocytosis Morbid obesity with OHS -BiPAP QHS and PRN Confusion/MS - improved -Monitor BRYANT OQUENDO DO Aug 11, 2018 06:04
[2018-08-11] MEDS: PANTOPRAZOLE 20 MG TABLET (PROTONIX) PO SCH (06:18)
[2018-08-11] MEDS: FERROUS SULF 325 MG (IRON) TAB PO SCH ×2 (06:18→16:58)
[2018-08-11] MEDS: CATHETER FLUSH 10 ML SYR IV SCH ×3 (06:19→22:19)
[2018-08-11] MEDS: ENOXAPARIN 40 MG/0.4 ML (LOVENOX) SYR SC SCH ×2 (07:44→20:56)
[2018-08-11] MEDS: MAGNESIUM OXIDE (MAG-OX)400 MG TAB PO SCH (07:44)
[2018-08-11 08:00] VITALS: BP 144/86
[2018-08-11] MEDS: guaiFENesin (MUCINEX) 600 MG TAB PO SCH ×2 (08:24→20:56)
[2018-08-11] MEDS: LACTULOSE SYRUP 10GM/15ML (ENULOSE) 30ML UDC PO SCH ×2 (08:24→20:59)
[2018-08-11] MEDS: CALCIUM CARBONATE 500 MG (TUMS) TAB.CHEW PO SCH ×2 (08:24→20:56)
[2018-08-11] MEDS: predniSONE 10 MG TAB PO SCH (08:25)
[2018-08-11] MEDS: RT-ALBUTEROL/IPRATROPIUM 3 ML (DUONEB) VIAL INH SCH ×2 (11:40→20:17)
[2018-08-11 12:00] VITALS: BP 133/84
--- NOTE | 2018-08-11 14:15 | Progress Note (SOAP) ---
Subjective Subjective/Events-last exam Afebrile, no acute events. She is feeling like she is ready to go back to the nursing facility. Denies concerns. Review of Systems Date Seen by Provider: Aug 11, 2018 Time Seen by Provider: 10:10 Objective Exam Last Set of Vital Signs Vital Signs Date Time Temp Pulse Resp B/P (MAP) Pulse Ox O2 Delivery O2 Flow Rate FiO2 08/11/18 08:00 Room Air 08/11/18 08:00 99.9 82 20 144/86 (105) 92 08/11/18 02:45 30.00 08/09/18 11:24 21 Capillary Refill : Less Than 3 SecondsLess Than 3 Seconds I&O Intake and Output 08/11/18 00:00 Intake Total 1450 ml Output Total 1450 ml Balance 0 ml Intake Oral 1450 ml Output Urine Total 1450 ml # Bowel Movements 2 General: Alert, No Acute Distress Lungs: Other (end expiratory wheeze) Heart: Regular Rate Abdomen: Normal Bowel Sounds, Soft Neuro: Normal Speech Psych/Mental Status: Mental Status NL Results/Procedures Lab Laboratory Tests 08/11/18 04:35: White Blood Count 8.2, Red Blood Count 4.35, Hemoglobin 12.7, Hematocrit 40, Mean Corpuscular Volume 91, Mean Corpuscular Hemoglobin 29, Mean Corpuscular Hemoglobin Concent 32, Red Cell Distribution Width 14.4, Platelet Count 243, Mean Platelet Volume 10.5H, Sodium Level 136, Potassium Level 4.0, Chloride Level 103, Carbon Dioxide Level 23, Anion Gap 10, Blood Urea Nitrogen 27H, Creatinine 0.79, Estimat Glomerular Filtration Rate > 60, BUN/Creatinine Ratio 34, Glucose Level 112H, Calcium Level 8.6 Microbiology 08/06/18 Blood Culture - Preliminary, Resulted No growth Radiology Head CT 08/06 without acute abnormality Bilateral LE venous dopplers 08/06 with no DVT CXR 08/06 with right cardiophrenic angle density Assessment/Plan Assessment/Plan (1) Confusion Status: Resolved Assessment & Plan: Unknown baseline, no family present, but was reportedly in [facility] recently and started on depakote. Holding depakote, pt remains difficult to understand and somewhat lethargic, will check ABG given increased work of breathing. Head CT okay on admit. 08/08- improved today, discussed with daughter who reports she has occasional memory problems, but no diagnosis of dementia and previous to the last week or so was ambulatory independently. (2) General weakness Status: Acute Assessment & Plan: Unclear etiology, possibly infection related, when more alert will have PT/OT eval. Possibly related to depakote initiation. PT/OT notes state she was not entirely cooperative with treatment, pt states she is doing well, but sounds as if she is not at baseline currently, continue to work with therapy. Anticipate likely d/c to nursing facility tomorrow. (3) Right lower lobe pneumonia Status: Acute Assessment & Plan: Started on rocephin and azithromycin in ER, will continue. Qualifiers: Qualified Codes: J18.1 - Lobar pneumonia, unspecified organism (4) Hypoxia Status: Resolved Assessment & Plan: She denies using oxygen usually, has markedly increased work of breathing and is not leaving supplemental oxygen in place well. Repeat ABG and consult Dr. Macias. 08/08 were unable to obtain ABG yesterday, started on bipap and work of breathing is better and mental status better. 08/09 improved, on room air this am. 08/11 using bipap at night, appreciate Pulm recommendations (5) UTI (urinary tract infection) Status: Acute Assessment & Plan: Previous to admission was being treated with Keflex, will be covered with ceftriaxone for pneumonia. Qualifiers: Qualified Codes: N39.0 - Urinary tract infection, site not specified (6) DVT prophylaxis Status: Acute Assessment & Plan: Enoxaparin Clinical Quality Measures DVT/VTE Risk/Contraindication: Risk Factor Score Per Nursin RFS Level Per Nursing on Admit: 4+=Very High RUIZ BELTRAN MD Aug 11, 2018 14:14
[2018-08-11 16:00] VITALS: BP 153/93
[2018-08-11 20:00] VITALS: BP 146/90
[2018-08-11] MEDS ORDERED: NS (IVPB) 50 ML ONE (20:31)
[2018-08-11] MEDS: ATORVASTATIN 40 MG (LIPITOR) TABLET PO SCH (20:56)
[2018-08-11] MEDS: cefTRIAXone 1,000 MG/SWFI 10 ML IV PUSH IV SCH ×2 (22:19)
[2018-08-12 00:35] VITALS: BP 108/72
[2018-08-12 04:00] VITALS: BP 138/80
[2018-08-12 05:31] LABS: HEMOGLOBIN 13.2 G/DL (11.5-16.0); MEAN PLATELET VOLUME 10.2 FL (7.4-10.4); RED CELL DISTRIBUTION WIDTH 14.3 % (10.0-14.5); WHITE BLOOD COUNT 9.5 10^3/uL (4.3-11.0)
[2018-08-12] MEDS: CATHETER FLUSH 10 ML SYR IV SCH (05:50)
[2018-08-12 05:52] LABS: BUN/CREATININE RATIO 33; CALCIUM 8.4 MG/DL (8.5-10.1); CARBON DIOXIDE 24 MMOL/L (21-32); CHLORIDE 102 MMOL/L (98-107); CREATININE SERUM 0.78 MG/DL (0.60-1.30); GFR ESTIMATED > 60; GLUCOSE 72 MG/DL (70-105); SODIUM 136 MMOL/L (135-145)
[2018-08-12] MEDS: FERROUS SULF 325 MG (IRON) TAB PO SCH (06:51)
[2018-08-12] MEDS: PANTOPRAZOLE 20 MG TABLET (PROTONIX) PO SCH (06:51)
[2018-08-12 08:00] VITALS: BP 112/76
[2018-08-12] MEDS: RT-ALBUTEROL/IPRATROPIUM 3 ML (DUONEB) VIAL INH SCH (08:26)
[2018-08-12] MEDS: predniSONE 10 MG TAB PO SCH (08:59)
[2018-08-12] MEDS: ENOXAPARIN 40 MG/0.4 ML (LOVENOX) SYR SC SCH (08:59)
[2018-08-12] MEDS: CALCIUM CARBONATE 500 MG (TUMS) TAB.CHEW PO SCH (08:59)
[2018-08-12] MEDS: guaiFENesin (MUCINEX) 600 MG TAB PO SCH (08:59)
[2018-08-12] MEDS: LACTULOSE SYRUP 10GM/15ML (ENULOSE) 30ML UDC PO SCH (08:59)
[2018-08-12] MEDS: MAGNESIUM OXIDE (MAG-OX)400 MG TAB PO SCH (08:59)
--- NOTE | 2018-08-12 09:56 | Pulmonary Progress Note ---
Subjective Time Seen by a Provider: 09:52 Subjective/Events-last exam Pt is awake and alert. SHe denies SOB. she only complains of generalized pain. Sepsis Event Evaluation Height, Weight, BMI Height: 5'7.00" Weight: 310lbs. 7.0oz. 140.696534gj; 48.6 BMI Method:Stated Exam Exam Vital Signs Date Time Temp Pulse Resp B/P (MAP) Pulse Ox O2 Delivery O2 Flow Rate FiO2 08/12/18 08:27 92 Room Air 08/12/18 08:00 99.8 88 22 112/76 (88) 92 Room Air 08/12/18 08:00 Room Air 08/12/18 05:50 98.5 08/12/18 04:00 94.7 84 16 138/80 (99) 94 Room Air 08/12/18 01:54 76 14 96 30.00 08/12/18 00:35 94.8 85 19 108/72 (84) 96 Room Air 08/11/18 22:22 85 18 95 30.00 08/11/18 20:23 93 18 91 30.00 08/11/18 20:17 91 Room Air 08/11/18 20:00 Room Air 08/11/18 20:00 97.8 85 22 146/90 (108) 93 Room Air 08/11/18 16:00 98.3 89 22 153/93 (113) 91 Room Air 08/11/18 12:00 99.8 96 24 133/84 (100) 93 Room Air I & O 08/12/18 07:00 Intake Total 1490 ml Output Total 2200 ml Balance -710 ml Height & Weight Height: 5'7.00" Weight: 310lbs. 7.0oz. 140.784444oh; 48.6 BMI Method:Stated General Appearance: No Apparent Distress, WD/WN HEENT: PERRL/EOMI, Normal ENT Inspection, Pharynx Normal Neck: Full Range of Motion, Non Tender, Supple Respiratory: Chest Non Tender, Decreased Breath Sounds Cardiovascular: Regular Rate, Rhythm, No Edema Capillary Refill: Less Than 3 Seconds Gastrointestinal: normal bowel sounds, non tender, soft Extremity: Normal Capillary Refill, No Pedal Edema Neurologic/Psychiatric: Alert, Oriented x3 Skin: Normal Color, Warm/Dry Results Lab Laboratory Tests 08/11/18 04:35 08/12/18 05:13 Assessment/Plan Assessment/Plan Acute on chronic respiratory failure -Change to prednisone taper Morbid obesity with OHS -BiPAP QHS and PRN Confusion/MS - improved -Monitor Pt is ok from pulmonary standpoint for discharge. I will f/u with her as an out pt in 1-2 wks and try to arrange CPAP/BiPAP. Ok from my standpoint to discharge without Abx. Continue Prednisone taper. BRYANT OQUENDO DO Aug 12, 2018 09:55
[2018-08-12] MEDS ORDERED: PRED10TA22 PO (10:33)
--- NOTE | 2018-08-12 10:35 | Discharge Inst-Skilled Nursing ---
Discharge Inst-Skilled NF Patient Instructions Patient Problems: Acute on chronic respiratory failure Obesity Hypoxia Goal: Return to independent living Consult/Follow Up/Orders Follow Up Appt[facility] 08/16[facility]18 Dr Canela at 2:20pm Skilled NF Admit to: [facility] Certification (SNF) I certify that SNF services are required to be given on an inpatient basis be cause of the above named patient's need for long term care on a continuing basis for the conditions(s) for which he/she was receiving inpatient hospital services prior to his/her transfer to the SNF. Snf Facility Order: Nursing Services, [facility]-Evaluate & Treat, Physical Therapy-Evaluate & Treat, Speech Language-Evaluate & Treat Oxygen Delivery Method: Room Air Discharge Diet: No Restrictions Daily Activity as Tolerated: Yes New & Resume Previous Orders Rosa Betancourt Aug 12, 2018 10:34 ROSA BETANCOURT DO Aug 12, 2018 10:35
--- NOTE | 2018-08-12 10:35 | Discharge Summary-Hospitalist ---
Diagnosis/Chief Complaint Date of Admission Aug 08, 2018 at 10:00 Date of Discharge Discharge Date: Aug 12, 2018 Discharge Diagnosis (1) Confusion Status: Resolved (2) Hypoxia Status: Resolved (3) DVT prophylaxis Status: Acute (4) General weakness Status: Chronic (5) Right lower lobe pneumonia Status: Acute (6) UTI (urinary tract infection) Status: Acute Discharge Summary Discharge Physical Exam Allergies: Coded Allergies: Penicillins (Unverified Allergy, Mild, HIVES, 12/05/05) Tetanus Vaccines and Toxoid (Unverified Allergy, Mild, HIVES, 12/05/05) Vitals & I&Os Vital Signs Date Time Temp Pulse Resp B/P (MAP) Pulse Ox O2 Delivery O2 Flow Rate FiO2 08/12/18 08:27 92 Room Air 08/12/18 08:00 99.8 88 22 112/76 (88) 08/12/18 01:54 30.00 08/09/18 11:24 21 General Appearance: No Apparent Distress, WD/WN, Chronically ill, Obese Respiratory: Chest Non Tender, Lungs Clear, Normal Breath Sounds, No Accessory Muscle Use, No Respiratory Distress Cardiovascular: Regular Rate, Rhythm, No Edema, No Gallop, No JVD, No Murmur, Normal Peripheral Pulses Neurologic/Psychiatric: Alert, Oriented x3, No Motor/Sensory Deficits, Normal Mood/Affect Hospital Course Was the Problem List Reviewed?: Yes Hospital Course; Pt had a complicated lengthy hospital course for 5 days after she was admitted for altered mental status, dyspnea, and B/L lower extremity cellulitis. She was treated aggressively with BiPAP along with Dr. Macias consultation and pt actually improved enough to be able to be taken off oxygen and did not require BiPAP but that will be pursued as an out patient since she lives in a fci Dr. Macias will evaluate that when he sees her in order to get things set up. She was eating and drinking and doing very well at time of discharger back to her prior level of functioning but she will need skilled care at [facility] and she will have close f/u with Dr. Canela at [facility]. Labs (last 24 hrs) Laboratory Tests 08/12/18 05:13: White Blood Count 9.5, Red Blood Count 4.49, Hemoglobin 13.2, Hematocrit 41, Mean Corpuscular Volume 91, Mean Corpuscular Hemoglobin 29, Mean Corpuscular Hemoglobin Concent 32, Red Cell Distribution Width 14.3, Platelet Count 223, Mean Platelet Volume 10.2, Sodium Level 136, Potassium Level 4.0, Chloride Level 102, Carbon Dioxide Level 24, Anion Gap 10, Blood Urea Nitrogen 26H, Creatinine 0.78, Estimat Glomerular Filtration Rate > 60, BUN/Creatinine Ratio 33, Glucose Level 72, Calcium Level 8.4L Microbiology 08/06/18 Blood Culture - Final, Complete No growth Patient resulted labs reviewed. Pending Labs Discussion & Recommendations Discharge Planning: <30 minutes discharge planning Discharge Home Medications: Active Scripts Active Prednisone 10 Mg Tab.ds.pk 10 Mg PO DAILY Take 6 tabs(60mg)daily,decrease by 1 tab(10MG)daily. Reported Cranberry (Cranberry Fruit Concentrate) 450 Mg Capsule 450 Mg PO BID Acetaminophen 325 Mg Tablet 325 Mg PO Q4H PRN Artificial Tears Drops (Polyvinyl Alcohol/Povidone) 15 Ml Drops 2 Drop OU Q2H PRN Calcium Carbonate 300 Mg Tab.chew 750 Mg PO BID Vesicare (Solifenacin Succinate) 10 Mg Tablet 10 Mg PO DAILY Trazodone HCl 50 Mg Tablet 50 Mg PO HS Simvastatin 80 Mg Tablet 80 Mg PO HS Protonix (Pantoprazole Sodium) 20 Mg Tablet.dr 20 Mg PO DAILY Potassium Chloride 20 Meq Tab.er.prt 40 Meq PO DAILY Omeprazole 20 Mg Tablet.dr 20 Mg PO DAILY Midodrine HCl 10 Mg Tablet 10 Mg PO TID Magnesium Oxide 400 Mg Tablet 400 Mg PO DAILY Lactulose 20 Gm/30 Ml Solution 30 Ml PO BID Ferrous Sulfate 325 Mg Tablet 325 Mg PO BID Cyanocobalamin Injection (Cyanocobalamin) 1,000 Mcg/Ml Inj 1,000 Mcg IM MONTHLY ON THE Instructions to patient/family Please see electronic discharge instructions given to patient. Clinical Quality Measures DVT/VTE Risk/Contraindication: Risk Factor Score Per Nursin RFS Level Per Nursing on Admit: 4+=Very High Problem Qualifiers (1) Right lower lobe pneumonia: Pneumonia type: due to unspecified organism Qualified Codes: J18.1 - Lobar pneumonia, unspecified organism (2) UTI (urinary tract infection): Urinary tract infection type: site unspecified Hematuria presence: without hematuria Qualified Codes: N39.0 - Urinary tract infection, site not specified DEBBIE JASON DO Aug 12, 2018 10:35
--- NOTE | 2018-08-12 11:10 | NUR ---
CM/SS discharge planning: Patient will discharge to [facility] where she has been a long-term resident. They will transport this day. Spoke to patient's daughter at patient request and she will meet her at [place] when she gets there. Assisted with ordering the patient lunch so she could eat before going.
--- NOTE | 2018-08-12 15:41 | Occupational Ther Daily Note ---
OT Current Status-Daily Note Subjective No pain reported. Appearance Pt. in bed. Agrees to get up into chair. Mental Status/Objective Patient Orientation: Person Therapy Code Descriptions/Definitions Functional [place] Measure: 0=Not Assessed/NA 4=Minimal Assistance 1=Total Assistance 5=Supervision or Setup 2=Maximal Assistance 6=Modified [place] 3=Moderate Assistance 7=Complete [place] Attachments: IV ADL-Treatment Grooming (FIM): 3 (Mod assist to brush hair.) Transfers (B, C, W/C) (FIM): 3 Other Treatment Pt. leaving today. Agrees to work with OT. Transfers supine-sit with mod assist. Stands with min assist and takes several small steps to reclining chair. Noted that pt's hair is in knots. Agrees to let OT brush for her. Un able to fully get knots out. Pt. attempts this as well. Pt's feet are elevated and call light in place. Social work in with pt. when OT leaves room. Education OT Patient Education: Correct positioning, Modified ADL techniques, Progress toward Goal/Update tx plan, Purpose of tx/functional activities, Reviewed precautions, Rehab process, Transfer techniques Teaching Recipient: Patient Teaching Methods: Demonstration, Discussion Response to Teaching: Verbalize Understanding, Return Demonstration OT Short Term Goals Short Term Goals Transfers (B,C,W/C) (FIM): 5 1=Demonstrate adherence to instructed precautions during ADL tasks. 2=Patient will verbalize/demonstrate understanding of assistive devices/modifications for ADL. 3=Patient will improve strength/tolerance for activity to enable patient to perform ADL's. OT Fdc Goals Fdc Goals Time Frame: Aug 23, 2018 Grooming(FIM): 6 Upper Body Dressing(FIM): 5 Lower Body Dressing(FIM): 4 Toileting(FIM): 4 Toilet/Commode Transfer(FIM): 5 Additional Goals: 2-Verbalize Understanding, 3-ImproveStrength/[place] 1=Demonstrate adherence to instructed precautions during ADL tasks. 2=Patient will verbalize/demonstrate understanding of assistive devices /modifications for ADL. 3=Patient will improve strength/tolerance for activity to enable patient to perform ADL's. OT Education/Plan Problem List/Assessment Assessment: Decreased Activ Tolerance, Decreased UE Strength, Dependent Transfers, Impaired Bed Mobility, Impaired Funct Balance, Impaired I ADL's, Impaired Self-Care Skills Pt to benefit from skilled OT intervention for ADL training, transfers, strengthening, and safety education to increase independence and allow safe discharge plan Discharge Recommendations Plan/Recommendations: Discontinue OT (Pt. discharged today to [facility]. Would benefit from continued OT treatment.) Therapy D/C Recommendations: 24 hr Supervision Treatment Plan/Plan of Care Treatment,Training & Education: Yes Patient would benefit from OT for education, treatment and training to promote independence in ADL's, mobility, safety and/or upper extremity function for ADL's. Plan of Care: ADL Retraining, Functional Mobility, UE Funct Exercise/Act Treatment Duration: Aug 23, 2018 Frequency: 5 times per week Estimated Hrs Per Day: .25 hour per day Agreement: Yes Rehab Potential: Fair Time/GCodes Start Time: 10:45 Stop Time: 11:00 Total Time Billed (hr/min): 15 Billed Treatment Time 1, FA x 15minutes JAYCE BAZAN OT Aug 12, 2018 15:41
== END 2018-08-12 13:00 | DRG 193 ==
LOC: EDUNIT# 14:09 → ER 14:13 → 4TH 18:20 → UNDOADMOB 18:20 → 4TH 18:50 → INTOOBSV 08-08 10:00 → OBSVTOIN 08-08 10:00 → 4TH 08-12 12:23 → UNDODISIN 08-12 13:00
PROVIDERS: ADMIT Family Medicine; ATTEND Family Medicine
DX: J18.1 Lobar pneumonia, unspecified organism (principal); J96.20 Acute and chronic respiratory failure, unspecified whether with hypoxia or hypercapnia; L03.115 Cellulitis of right lower limb; L03.116 Cellulitis of left lower limb; N39.0 Urinary tract infection, site not specified; E66.2 Morbid (severe) obesity with alveolar hypoventilation; Z68.42 Body mass index [BMI] 45.0-49.9, adult; R53.1 Weakness; R41.0 Disorientation, unspecified; I11.0 Hypertensive heart disease with heart failure; I50.9 Heart failure, unspecified; F32.9 Major depressive disorder, single episode, unspecified
CPT/HCPCS: 36415; 36600; 70450; 71045; 80048; 80053; 80164; 81000; 82805; 83605; 83735; 83880; 84484; 85025; 85027; 87040; 93005; 93970; 94640; 94660; 94760; G0378

== ENCOUNTER 2018-11-06 19:49 | Outpatient (CLI) | payer MEDICAID ==
[~2018-11-06 19:49] MED LIST: ACET325T49 PO; ASCO1CAP3 PO; CALC-938 PO; CEPH-507 PO; CNC1KV IM; CRAN450C PO; FERR325T18 PO; FURO-125 PO; LACT20SO2 PO; MAGN400T7 PO; MIDO10TA PO; OMEP20TA7 PO; PANT20TA2 PO; POLY15DR14 OU; POTA20TA15 PO; PRED10TA22 PO; SIMV80TA21 PO; SOLI10TA2 PO; TRAZ-222 PO; VALP250S3 PO
== END 2018-11-07 06:55 | disposition home or self-care (01) ==
LOC: SLEEP 19:49
PROVIDERS: ATTEND Nurse Practitioner Family
DX: G47.33 Obstructive sleep apnea (adult) (pediatric) (principal); G47.36 Sleep related hypoventilation in conditions classified elsewhere; G47.10 Hypersomnia, unspecified
CPT/HCPCS: 95811

== ENCOUNTER 2018-12-24 19:25 | Outpatient (CLI) | payer MEDICAID | END 2018-12-25 07:06 | disposition home or self-care (01) | LOC: SLEEP 19:25 | PROVIDERS: ATTEND Nurse Practitioner Family | DX: G47.33 Obstructive sleep apnea (adult) (pediatric) (principal); G47.37 Central sleep apnea in conditions classified elsewhere; G47.36 Sleep related hypoventilation in conditions classified elsewhere; G47.10 Hypersomnia, unspecified | CPT/HCPCS: 95811 ==